=== PATIENT | male | born 1970 | race Hispanic/Latino ===

== ENCOUNTER 2016-05-27 21:26 | Inpatient (IN) | payer OTHER ==
[2016-05-27] MEDS ORDERED: DiphenhydrAMINE 50 mg/ml Inj IM STA (22:20)
[2016-05-27 22:45] LABS: BASO % 0.7 % (0.0-2.0); EOS # 0.2 K/uL (0.0-0.7); EOS % 3.3 % (0.0-4.0); HEMATOCRIT 42.6 % (35.0-51.0); LYMPH # 2.7 K/uL (1.0-4.3); LYMPH % 42.4 % (20.0-40.0); MEAN CELL VOLUME 94.8 fL (80.0-94.0); MEAN CORPUSCULAR HEMOGLOBIN 31.7 pg (27.0-31.0); MEAN CORPUSCULAR HGB CONC 33.4 g/dL (33.0-37.0); MEAN PLATELET VOLUME 7.7 fL (7.2-11.7); MONO # 0.3 K/uL (0.0-0.8); MONO % 4.3 % (0.0-10.0); RED CELL DISTRIBUTION WIDTH 13.2 % (11.5-14.5); WHITE BLOOD COUNT 6.4 K/uL (4.8-10.8)
[2016-05-27] MEDS ORDERED: DiphenhydrAMINE 50 mg/ml Inj ONE (22:46)
[2016-05-27 22:48] LABS: RBC URINE < 1 /hpf (0-3); URINE BILIRUBIN NEGATIVE (NEGATIVE); URINE BLOOD NEGATIVE (NEGATIVE); URINE COLOR Yellow (YELLOW); URINE GLUCOSE (UA) NORMAL (Normal); URINE KETONE NEGATIVE (NEGATIVE); URINE LEUKOCYTE ESTERASE NEG Leu/uL (Negative); URINE PROTEIN NEGATIVE (NEGATIVE); URINE UROBILINOGEN NORMAL mg/dL (0.2-1.0); WBC URINE < 1 /hpf (0-5)
[2016-05-27 22:55] LABS: CHLORIDE 99 mmol/L (98-107); POTASSIUM 4.3 mmol/L (3.6-5.2); SODIUM 138 mmol/L (132-148)
[2016-05-27 22:57] LABS: GFR AFRICAN-AMERICAN > 60
[2016-05-27 22:58] LABS: ALB/GLOB RATIO 1.7 (1.0-2.1); ALKALINE PHOSPHATASE 81 U/L (38-126); ALT/SGPT 36 U/L (21-72); AST/SGOT 46 U/L (17-59); BILIRUBIN,TOTAL 0.5 mg/dL (0.2-1.3); BLOOD UREA NITROGEN 15 mg/dL (9-20); CALCIUM 8.5 mg/dl (8.6-10.4); CARBON DIOXIDE 21 mmol/L (22-30); GLUCOSE,RANDOM 86 mg/dL (75-110); TOTAL PROTEIN 7.5 g/dL (6.3-8.3)
[2016-05-27 22:59] LABS: ALCOHOL SERUM 252 mg/dl (0-10)
--- NOTE | 2016-05-27 23:01 | C.PDOC ---
History Of Present Illness Patient is a 45 year old male who presents to the ER intoxicated with suicidal ideation. Patient has a history of chronic intoxication, psychiatric illness and admission for psychiatric illness. Time Seen by Provider: 05/27/16 22:17 Chief Complaint (Nursing): Psychiatric Evaluation History Per: Patient History/Exam Limitations: no limitations Onset/Duration Of Symptoms: Hrs Current Symptoms Are (Timing): Still Present Suicide/Self Injury Attempted (Context): None Modifying Factor(s): Alcohol Associated Symptoms: Suicidal Thoughts, Suicidal Plan Past Medical History Reviewed: Historical Data, Nursing Documentation, Vital Signs Vital Signs: Last Vital Signs Temp 97.3 F L 05/27/16 23:59 Pulse 74 05/27/16 23:59 Resp 16 05/27/16 23:59 BP 97/60 L 05/27/16 23:59 Pulse Ox 98 05/27/16 23:59 - Medical History PMH: Bipolar Disorder, Depression, Schizophrenia - [facility] Procedures ALCOHOL DETOXIFICATION (08/25/12) DETOXIFICATION SERVICES FOR SUBSTANCE ABUSE TREATMENT (04/24/16) GROUP TERMINAL MAKE UP OPERATOR FOR SUBSTANCE ABUSE TREATMENT, PSYCHOEDUCATION (02/12/15) INDIV PSYCHOTHERAPY FOR SUBSTANCE ABUSE TREATMENT, SUPPORT (04/24/16) INDIV PSYCHOTHERAPY FOR SUBSTANCE ABUSE, COGNITIV BEHAVIORAL (04/24/16) INDIV PSYCHOTHERAPY FOR SUBSTANCE ABUSE, PSYCHOEDUCATION (04/24/16) INDIVID PSYCHOTHERAP NEC (01/12/13) INDIVIDUAL PSYCHOTHERAPY, COGNITIVE-BEHAVIORAL (04/24/16) INDIVIDUAL PSYCHOTHERAPY, SUPPORTIVE (04/24/16) OTHER GROUP THERAPY (01/12/13) Family History: States: Unknown Family Hx - Social History Hx Tobacco Use: Yes Hx Alcohol Use: Yes (vodka) Hx Substance Use: Yes (heroin, xanax) - Immunization History Hx Tetanus Toxoid Vaccination: Yes Hx Influenza Vaccination: No Hx Pneumococcal Vaccination: No Review Of Systems Constitutional: Negative for: Fever, Chills Cardiovascular: Negative for: Palpitations Respiratory: Negative for: Shortness of Breath Gastrointestinal: Negative for: Nausea, Vomiting Psych: Positive for: Suicidal ideation Physical Exam - Physical Exam Appears: Non-toxic, Other (Ready eye, ETOH on breath) Skin: Normal Color, Warm, Dry Head: Atraumatic, Normacephalic Oral Mucosa: Moist Chest: Symmetrical Cardiovascular: Rhythm Regular Respiratory: Normal Breath Sounds, No Rales, No Rhonchi, No Wheezing Gastrointestinal/Abdominal: Other (Obese) Neurological/Psych: Oriented x3 Additional Physical Exam Comments: Patient speaking nonsense, will not follow instructions. ED Course And Treatment - Laboratory Results Result Diagrams: 05/27/16 22:42 05/27/16 22:42 Lab Interpretation: Abnormal (ETOH 252 H, tox + THC, opiates) O2 Sat by Pulse Oximetry: 97 (Room air) Pulse Ox Interpretation: Normal Progress Note: Drug screen ordered. Ativan IM, Benadryl IM, and Geodon cap IM administered. Reevaluation Time: 00:41 Reassessment Condition: Improved (resting comfortably, restraints ultimately not necessary for safety. Pending sobriety for Crisis eval) Disposition - Disposition Disposition Time: 01:00 Condition: GOOD - Clinical Impression Clinical Impression: Alcohol intoxication, Polysubstance abuse - Scribe Statement The provider has reviewed the documentation as recorded by the Scribe Mandeep Ly All medical record entries made by the Scribe were at my direction and personally dictated by me. I have reviewed the chart and agree that the record accurately reflects my personal performance of the history, physical exam, medical decision making, and the department course for this patient. I have also personally directed, reviewed, and agree with the discharge instructions and disposition. Physician Patient Turnover Patient Signed Over To: Jo Persaud Handoff Comments: dispo per Crisis eval
[2016-05-28 12:30] VITALS: O2SAT 98
[2016-05-28] MEDS ORDERED: Aluminum Hydroxide/Magnesium Hydroxide Susp (30 mL) PO PRN (14:03)
[2016-05-28] MEDS: Multiple Vitamins Tab PO SCH (15:28)
--- NOTE | 2016-05-28 15:53 | PCM.PSYCH ---
Initial Psychiatric Evaluation - Initial Psychiatric Evaluation Type of Admission: Voluntary Legal Status: Capacity History of Present Illness and Precipitating Events: Pt is a 45 yo M admitted for depression with suicidal ideation, alcohol, benzo, and heroin withdrawal. 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 States he has a history of depression for the past 4-5 years, this current episode of depressed mood began one week ago. Associated symptoms include anhedonia, decreased energy, poor sleep, poor appetite, difficulty concentrating. Pt reports suicidal ideation with plan to jump onto subway tracks or off a building. Reports history of suicidal ideation, but no previous suicide attempts. Denies homicidal ideation, visual or auditory hallucinations. Pt also complaining of alcohol and heroin withdrawal. Began drinking heavily 5 years ago. Drinks 2 pints of rum and vodka , along with twenty 24 oz. cans of beer daily. Pts last drink was 9 PM last night. Pt reports a 20 year history of heroin use. Currently uses 15 bags per day, shoots and snorts. Last use was 5 bags at 10PM last night. Pt also admits to using 2mg of Xanax daily for the past month. Last use was 10PM last night. Pt denies all other drug use. History of 5-6 detox and 1 rehab. Longest period of sobriety was for 2 years following rehab. Pt Complains of withdrawal symptoms including anxiety, restlessness, insomnia, abdominal pain, nausea, vomiting, diarrhea, yawning, rhinorrhea. Denies fever, palpitations, tremor, and seizure. Pts discharge plan is to attend senior living inpatient rehab. Psych Hx: Major depressive disorder, alcohol use disorder, opioid use disorder. Multiple inpatient psych admissions in the past, last admission was at [facility] on 04/24/16. Family Psych Hx: denies PMHx: Denies Medications: Neurontin, Zoloft, trazodone Current Medications: Active Medications Generic Name Dose Route Start Last Admin Trade Name Freq PRN Reason Stop Dose Admin Al Hydrox/Mg Hydrox/Simethicone 30 ml 05/28/16 14:03 Maalox 30 Ml PO TID PRN Indigestion / Heartburn Chlordiazepoxide 25 mg 05/28/16 14:02 Librium PO Q4H PRN Alcohol Withdrawal Clonidine HCl 0.1 mg 05/28/16 14:03 Catapres PO Q8 PRN COWS Score More or Equal to 5 Diphenhydramine HCl 50 mg 05/28/16 14:00 Benadryl PO Q6 PRN Extra Pyramidal Symptoms Folic Acid 1 mg 05/28/16 14:15 05/28/16 15:29 Folic Acid PO 1 mg DAILY BURTON Administration Loperamide HCl 2 mg 05/28/16 14:00 Imodium PO Q8 PRN Diarrhea Multivitamins 1 tab 05/28/16 14:15 05/28/16 15:28 Hexavitamin PO 1 tab DAILY B[facility]TON Administration Nicotine 1 patch 05/28/16 14:15 05/28/16 15:23 Nicoderm Cq TD Not Given DAILY BURTON Ondansetron HCl 4 mg 05/28/16 14:00 Zofran Tab PO Q8H PRN Nausea/Vomiting Pseudoephedrine HCl 60 mg 05/28/16 14:03 Sudafed Tab PO QID PRN Nasal/Sinus Congestion Thiamine HCl 100 mg 05/28/16 14:15 05/28/16 15:29 Vitamin B1 Tab PO 100 mg DAILY BURTON Administration Trazodone HCl 50 mg 05/28/16 22:00 Desyrel PO HS BURTON Past Psychiatric History - Past Psychiatric History Previous Treatment History: Inpatient Pertinent Medical Hx (Current Medical&Sleep Prob, Allergies): Allergies Allergy/AdvReac Type Severity Reaction Status Date / Time FISH Allergy Severe RASH Verified 04/23/16 19:25 EGG Allergy Verified 04/23/16 19:25 Penicillins Allergy Verified 04/23/16 19:25 Gabapentin [Neurontin] 400 mg PO TID #90 cap 04/30/16 QUEtiapine [Seroquel] 100 mg PO HS #30 tab 04/30/16 Sertraline [Zoloft] 100 mg PO DAILY #30 tab 04/30/16 traZODone [Desyrel] 100 mg PO HS PRN #30 tab 04/30/16 Review of Systems - Review of Systems All systems: reviewed and no additional remarkable complaints except - Psychiatric Psychiatric: Anxiety, Irritability, Mood Swings, Suicidal Ideation Mental Status Examination - Personal Presentation Personal Presentation: Looks stated age - Affect Affect: Constricted, Depressed - Motor Activity Motor Activity: Calm - Reliability in Providing Information Reliability in Providing Information: Good - Speech Speech: Organized - Mood Mood: Depressed, Anxious - Formal Thought Process Formal Thought Process: No Impairment - Obsessions/Compulsions Obsessions: No Compulsions: No - Cognitive Functions Orientation: Person, Place, Situation, Time Sensorium: Alert Attention/Concentration: Easily distracted Abstract Thinking: [place] Estimate of Intelligence: Below average Judgement: Imparied, as evidence by: Poor judgement, Imparied, as evidence by: Lack of insight into illness - Risk Risk: Suicidal, Withdrawal, Diminished functioning - Strength & Assets Inventory Strength & Assets Inventory: Cooperative - Limitations Limitations: Living alone DSM 5 DX - DSM 5 DSM 5 Diagnosis: Major depressive disorder recurrent severe without psychotic features Alcohol use disorder severe Alcohol withdrawal Opiate use disorder severe Opiate withdrawal - Recommended/Plan of Treatment Treatment Recommendations and Plan of Treatment: Major depressive disorder recurrent severe without psychotic features CBT Psychoeducation Supportive therapy, group therapy, individual therapy Zoloft 25 mg by mouth daily Trazodone 50 mg by mouth daily at bedtime Alcohol use disorder severe CBT Psychoeducation use [place] for abstinence Alcohol withdrawal CBT Psychoeducation Librium taper Opiate use disorder severe CBT Psychoeducation use [place] for abstinence Opiate withdrawal CBT Psychoeducation Methadone taper - Smoking Cessation Smoking Cessation Initiated: No
[2016-05-29] MEDS: Multiple Vitamins Tab PO SCH (09:52)
--- NOTE | 2016-05-29 15:30 | PCM.PYCHPN ---
Psychiatric Progress Note - Psychiatric Progress Note Patient seen today, length of contact: 15 min Patient Chief Complaint: I'm feeling depressed Problems Identified/Issues Discussed: Patient seen and evaluated, chart reviewed and discussed with the nurse. Patient reports irritability, and feelings of hopelessness and helplessness. He remained isolated and withdrawn. He still reports withdrawal symptoms including shakes, anxiety, headaches, nausea and sweating. However he remained calm and cooperative. He is taking medication and denied any side effects. Supportive therapy and psychoeducation were given Medication Change: Yes (Methadone taper, Librium taper) Medical Record Reviewed: Yes Mental Status Examination - Cognitive Function Orientation: Person, Place, Situation, Time Memory: Intact Attention: WNL Concentration: Poor Association: WNL Fund of Knowledge: Poor - Mood Mood: Depressed, Anxious - Affect Affect: Constricted, Depressed - Speech Speech: Soft - Formal Thought Process Formal Thought Process: No Impairment - Suicidal Ideation Suicidal Ideation: No - Homicidal Ideation Homicidal Ideation: No Goal/Treatment Plan - Goal/Treatment Plan Need for Continued Stay: Discharge may exacerbated symptoms, Severe functional impairment Progress Toward Problem(s) and Goals/Treatment Plan: Major depressive disorder recurrent severe without psychotic features CBT Psychoeducation Supportive therapy, group therapy, individual therapy Zoloft 25 mg by mouth daily Trazodone 50 mg by mouth daily at bedtime Alcohol use disorder severe CBT Psychoeducation use [place] for abstinence Alcohol withdrawal CBT Psychoeducation Librium taper Opiate use disorder severe CBT Psychoeducation use [place] for abstinence Opiate withdrawal CBT Psychoeducation Methadone taper - Smoking Cessation Smoking Cessation Initiated: No
--- NOTE | 2016-05-30 10:00 | PCM.PYCHPN ---
Psychiatric Progress Note - Psychiatric Progress Note Patient seen today, length of contact: 15 min Patient Chief Complaint: I'm feeling depressed Problems Identified/Issues Discussed: Patient seen and evaluated, chart reviewed and discussed with the nurse. As per the staff patient remained calm and cooperative and has started attending groups and meetings. Patient reports a bit improvement in his depressed mood but still reports depressed mood and sometimes feelings of hopelessness and helplessness. He remained isolated and withdrawn. He still reports withdrawal symptoms including anxiety, cramps and sweating. He is taking medication and denied any side effects. Supportive therapy and psychoeducation were given Medication Change: Yes (Methadone taper, Librium taper, increase zoloft, start remeron) Medical Record Reviewed: Yes Mental Status Examination - Cognitive Function Orientation: Person, Place, Situation, Time Memory: Intact Attention: WNL Concentration: Poor Association: WNL Fund of Knowledge: Poor - Mood Mood: Depressed, Anxious - Affect Affect: Constricted, Depressed - Speech Speech: Soft - Formal Thought Process Formal Thought Process: No Impairment - Suicidal Ideation Suicidal Ideation: No - Homicidal Ideation Homicidal Ideation: No Goal/Treatment Plan - Goal/Treatment Plan Need for Continued Stay: Discharge may exacerbated symptoms, Severe functional impairment Progress Toward Problem(s) and Goals/Treatment Plan: Major depressive disorder recurrent severe without psychotic features CBT Psychoeducation Supportive therapy, group therapy, individual therapy Zoloft 100 mg by mouth daily Trazodone 50 mg by mouth daily at bedtime Strat Remeron 15 mg PO Q HS Increase Neurontin to 300 mg PO TID Alcohol use disorder severe CBT Psychoeducation use [place] for abstinence Alcohol withdrawal CBT Psychoeducation Librium taper Opiate use disorder severe CBT Psychoeducation use [place] for abstinence Opiate withdrawal CBT Psychoeducation Methadone taper - Smoking Cessation Smoking Cessation Initiated: No
[2016-05-30] MEDS: Multiple Vitamins Tab PO SCH (10:15)
[2016-05-31] MEDS: Multiple Vitamins Tab PO SCH (09:29)
--- NOTE | 2016-05-31 13:20 | PCM.PYCHPN ---
Psychiatric Progress Note - Psychiatric Progress Note Patient seen today, length of contact: 15 min Patient Chief Complaint: "I need more methadone" Problems Identified/Issues Discussed: The pt is seen, chart reviewed, case discussed with staff. The pt is compliant with medications and reports no side-effects. Symptoms are improving but needs more time to stabilize. However, he also claims he is withdrawing (maybe minimal sxs observed) He will get one LAST dose of methadone tomorrow After care discussed, support and psychoeducation given. [place] and CBT used briefly. Medication Change: Yes (Methadone taper, Librium taper) Medical Record Reviewed: Yes Mental Status Examination - Cognitive Function Orientation: Person, Place, Situation, Time Memory: Intact Attention: WNL Concentration: Poor Association: WNL Fund of Knowledge: Poor - Mood Mood: Depressed, Anxious - Affect Affect: Constricted - Speech Speech: Soft - Formal Thought Process Formal Thought Process: No Impairment - Suicidal Ideation Suicidal Ideation: No - Homicidal Ideation Homicidal Ideation: No Goal/Treatment Plan - Goal/Treatment Plan Need for Continued Stay: Discharge may exacerbated symptoms, Severe functional impairment Progress Toward Problem(s) and Goals/Treatment Plan: Continue medications Support and psychoeducation daily Attend groups and activities daily After care planning
[2016-06-01] MEDS: Multiple Vitamins Tab PO SCH (09:10)
--- NOTE | 2016-06-01 17:42 | PCM.PYCHPN ---
Psychiatric Progress Note - Psychiatric Progress Note Patient seen today, length of contact: 16 min Patient Chief Complaint: "I am still withdrawing" Problems Identified/Issues Discussed: The pt is seen, chart reviewed, case discussed with staff. The pt is compliant with medications and reports no side-effects. He thinks he is still withdrawing (he is not) and that he is still depressed. Detox completed After care discussed, support and psychoeducation given. He will apply to [employer] in [place] used Medication Change: Yes (detox ended, increase gabapentin for anxiety) Medical Record Reviewed: Yes Mental Status Examination - Cognitive Function Orientation: Person, Place, Situation, Time Memory: Intact Attention: WNL Concentration: Poor Association: WNL Fund of Knowledge: Poor - Mood Mood: Depressed, Anxious - Affect Affect: Constricted - Speech Speech: Soft - Formal Thought Process Formal Thought Process: No Impairment - Suicidal Ideation Suicidal Ideation: No - Homicidal Ideation Homicidal Ideation: No Goal/Treatment Plan - Goal/Treatment Plan Need for Continued Stay: Discharge may exacerbated symptoms, Severe functional impairment Progress Toward Problem(s) and Goals/Treatment Plan: Continue medications, debbie increased due to anxiety Support and psychoeducation daily Attend groups and activities daily After care planning: [employer] application in AM Estimated Date of D/C: 06/03/16
[2016-06-02] MEDS: Multiple Vitamins Tab PO SCH (09:43)
--- NOTE | 2016-06-02 13:27 | PCM.PYCHPN ---
Psychiatric Progress Note - Psychiatric Progress Note Patient seen today, length of contact: 16 min Patient Chief Complaint: I'm feeling better Problems Identified/Issues Discussed: Patient seen and evaluated, chart reviewed and discussed with the nurse. Today patient reports improvement in his mood and improvement in his withdrawal symptoms. This reports of poor sleep and anxiety but denies any feelings of hopelessness and helplessness. He has any suicidal ideation or homicidal ideation. Supportive therapy and psychoeducation were given Medication Change: Yes (detox ended, increase gabapentin for anxiety) Medical Record Reviewed: Yes Mental Status Examination - Cognitive Function Orientation: Person, Place, Situation, Time Memory: Intact Attention: WNL Concentration: WNL Association: WN Fund of Knowledge: WNL - Mood Mood: Depressed, Anxious - Affect Affect: Constricted - Speech Speech: Soft - Formal Thought Process Formal Thought Process: No Impairment - Suicidal Ideation Suicidal Ideation: No - Homicidal Ideation Homicidal Ideation: No Goal/Treatment Plan - Goal/Treatment Plan Need for Continued Stay: Discharge may exacerbated symptoms, Severe functional impairment Progress Toward Problem(s) and Goals/Treatment Plan: Major depressive disorder recurrent severe without psychotic features CBT Psychoeducation Supportive therapy, group therapy, individual therapy Zoloft 100 mg by mouth daily Trazodone 50 mg by mouth daily at bedtime Strat Remeron 15 mg PO Q HS Increase Neurontin to 300 mg PO TID Alcohol use disorder severe CBT Psychoeducation use [place] for abstinence Alcohol withdrawal CBT Psychoeducation Librium taper Opiate use disorder severe CBT Psychoeducation use [place] for abstinence Opiate withdrawal CBT Psychoeducation Methadone taper Estimated Date of D/C: 06/03/16 - Smoking Cessation Smoking Cessation Initiated: Yes
[2016-06-03 06:59] VITALS: BP 119/76; PULSE 74; RESP 19; TEMP 97.6
--- NOTE | 2016-06-03 09:46 | PCM.PYCHDC ---
Mental Status Examination - Mental Status Examination Orientation: Person, Place, Situation, Time Memory: Intact Mood: Neutral Affect: Constricted Speech: Soft Attention: WNL Concentration: WNL Association: WNL Fund of Knowledge: WNL Formal Thought Process: No Impairment Description of patient's judgement and insight: good, fair Psychotic Thoughts and Behaviors: denies any AVH Suicidal Ideation: No Current Homicidal Ideation?: No Discharge Summary - Discharge Note Reason for Hospitalization: Pt is a 45 yo M admitted for depression with suicidal ideation, alcohol, benzo, and heroin withdrawal. 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 States he has a history of depression for the past 4-5 years, this current episode of depressed mood began one week ago. Associated symptoms include anhedonia, decreased energy, poor sleep, poor appetite, difficulty concentrating. Pt reports suicidal ideation with plan to jump onto subway tracks or off a building. Reports history of suicidal ideation, but no previous suicide attempts. Denies homicidal ideation, visual or auditory hallucinations. Pt also complaining of alcohol and heroin withdrawal. Began drinking heavily 5 years ago. Drinks 2 pints of rum and vodka , along with twenty 24 oz. cans of beer daily. Pts last drink was 9 PM last night. Pt reports a 20 year history of heroin use. Currently uses 15 bags per day, shoots and snorts. Last use was 5 bags at 10PM last night. Pt also admits to using 2mg of Xanax daily for the past month. Last use was 10PM last night. Pt denies all other drug use. History of 5-6 detox and 1 rehab. Longest period of sobriety was for 2 years following rehab. Pt Complains of withdrawal symptoms including anxiety, restlessness, insomnia, abdominal pain, nausea, vomiting, diarrhea, yawning, rhinorrhea. Denies fever, palpitations, tremor, and seizure. Pts discharge plan is to attend [facility] inpatient rehab. Consultations:: List each consultation separately and include: 1. Reason for request. 2. Findings. 3. Follow-up Summary of Hospital Course include:: 1. Description of specific treatment plan utilized for patients during their course of treatmen. 2. Summarize the time- course for resolution of acute symptoms and/or regressed behaviors. 3. Describe issues identified and worked on during hospitalization. 4. Describe medication utilized. 5. Describe medical problems identified and treated. 6. Reassessment of suicide risk Summary of Hospital Course: During the course of his stay, patient (pt) started progressively improving and he no longer remained irritable, depressed, and suicidal. His mood was improved and he started attending groups and meetings and started socializing. Patient denied any feelings of hopelessness, helplessness, and worthlessness, denied any problem with the sleep or appetite, denied suicidal ideation or homicidal ideation. Pt denied any auditory or visual hallucinations. Some changes were made in his current medications and patient was discharged on following medications. He tolerated these medications very well and denied any side effects. - Final Diagnosis (DSM 5) Condition upon Discharge: STABLE DSM 5: Major depressive disorder recurrent severe without psychotic features Alcohol use disorder severe Alcohol withdrawal Opiate use disorder severe Opiate withdrawal Disposition: HOME/ ROUTINE Follow-up Treatment Plan: Education: Pt was educated and counseled about the risks and benefits of taking and not taking medications. Pt was educated and counseled about the risks of drinking and abusing drugs. Pt was educated and counseled to go to the ER or call 911 if pt develop suicidal ideation or homicidal ideation, worsening of symptoms or severe side effects of the meds. Prescriptions/Medication Reconciliation: traZODone [Desyrel] 50 mg PO HS PRN #30 tab PRN Reason: Insomnia Gabapentin [Neurontin] 400 mg PO TID #90 cap Mirtazapine [Remeron] 30 mg PO HS #30 tab Sertraline [Zoloft] 100 mg PO DAILY #30 tab - Smoking Cessation Smoking Cessation Medication prescribed: No - Antipsychotic Medications Pt discharged on 2 or more routine antipsychotic medications: No
[2016-06-03] MEDS: Multiple Vitamins Tab PO SCH (09:55)
== END 2016-06-03 10:22 | disposition home or self-care (01) | DRG 744 ==
LOC: C.ER 21:26 → C.9OBSV 05-28 01:10 → OBSVTOIN 05-28 10:43 → C.5E 05-28 10:43
PROVIDERS: ADMIT Emergency Medicine; ATTEND Psychiatry & Neurology Psychiatry
PROC: HZ2ZZZZ Detoxification Services for Substance Abuse Treatment (ICD-10-PCS; principal; 2016-05-28)
PROC: HZ52ZZZ Individual Psychotherapy for Substance Abuse Treatment, Cognitive-Behavioral (ICD-10-PCS; 2016-05-28)
PROC: GZHZZZZ Group Psychotherapy (ICD-10-PCS; 2016-05-28)
PROC: HZ81ZZZ Medication Management for Substance Abuse Treatment, Methadone Maintenance (ICD-10-PCS; 2016-05-28)
PROC: HZ56ZZZ Individual Psychotherapy for Substance Abuse Treatment, Psychoeducation (ICD-10-PCS; 2016-05-28)
PROC: HZ83ZZZ Medication Management for Substance Abuse Treatment, Antabuse (ICD-10-PCS; 2016-05-28)
PROC: GZ58ZZZ Individual Psychotherapy, Cognitive-Behavioral (ICD-10-PCS; 2016-05-28)
PROC: GZ56ZZZ Individual Psychotherapy, Supportive (ICD-10-PCS; 2016-05-28)
DX: F10.239 Alcohol dependence with withdrawal, unspecified (principal); F33.2 Major depressive disorder, recurrent severe without psychotic features; F19.20 Other psychoactive substance dependence, uncomplicated; R45.851 Suicidal ideations; F20.9 Schizophrenia, unspecified; R45.850 Homicidal ideations; F11.23 Opioid dependence with withdrawal; F31.9 Bipolar disorder, unspecified; F41.9 Anxiety disorder, unspecified; G47.00 Insomnia, unspecified; Z79.899 Other long term (current) drug therapy; Z87.891 Personal history of nicotine dependence

== ENCOUNTER 2016-07-15 22:50 | Emergency (ER) | payer MEDICAID, OTHER ==
[2016-07-15 23:22] VITALS: RESP 20
--- NOTE | 2016-07-15 23:45 | C.PDOC ---
History Of Present Illness A 45 y/o male presents to the ER c/o depression and suicidal ideation today. Pt notes that he wants to jump of a bridge. Pt is ETOH intoxicated but denies any physical complaints. Time Seen by Provider: 07/15/16 23:44 Chief Complaint (Nursing): Psychiatric Evaluation History Per: Patient History/Exam Limitations: intoxication Onset/Duration Of Symptoms: Hrs Current Symptoms Are (Timing): Still Present Suicide/Self Injury Attempted (Context): None Modifying Factor(s): Alcohol Severity: Mild Associated Symptoms: Depression, Suicidal Thoughts (Wants to jump off a plane). denies: Suicidal Plan Involuntary Hold By: None Recent travel outside of the [place]: No Additional History Per: Patient Past Medical History Reviewed: Historical Data, Nursing Documentation, Vital Signs Vital Signs: Last Vital Signs Temp 98 F 07/15/16 23:15 Pulse 88 07/16/16 04:00 Resp 20 07/16/16 04:00 BP 132/70 07/16/16 04:00 Pulse Ox 98 07/16/16 04:00 - Medical History PMH: Bipolar Disorder, Depression, HIV (Not proved by lab work.), Schizophrenia Denies: Diabetes, Hepatitis, HTN, Chronic Kidney Disease, Seizures, Sexually Transmitted Disease - [facility] Procedures ALCOHOL DETOXIFICATION (08/25/12) DETOXIFICATION SERVICES FOR SUBSTANCE ABUSE TREATMENT (05/28/16) GROUP INSPECTOR REPAIRER SANDSTONE FOR SUBSTANCE ABUSE TREATMENT, PSYCHOEDUCATION (02/12/15) GROUP PSYCHOTHERAPY (06/23/16) INDIV PSYCHOTHERAPY FOR SUBSTANCE ABUSE TREATMENT, SUPPORT (04/24/16) INDIV PSYCHOTHERAPY FOR SUBSTANCE ABUSE, COGNITIV BEHAVIORAL (05/28/16) INDIV PSYCHOTHERAPY FOR SUBSTANCE ABUSE, PSYCHOEDUCATION (05/28/16) INDIVID PSYCHOTHERAP NEC (01/12/13) INDIVIDUAL PSYCHOTHERAPY, COGNITIVE-BEHAVIORAL (06/23/16) INDIVIDUAL PSYCHOTHERAPY, SUPPORTIVE (05/28/16) MEDS MGMT FOR SUBSTANCE ABUSE TREATMENT, ANTABUSE (05/28/16) MEDS MGMT FOR SUBSTANCE ABUSE TREATMENT, METHADONE MAINT (05/28/16) OTHER GROUP THERAPY (01/12/13) Family History: States: Unknown Family Hx - Social History Hx Tobacco Use: Yes Hx Alcohol Use: Yes Hx Substance Use: Yes (heroin,marijuana,xanax) - Immunization History Hx Tetanus Toxoid Vaccination: Yes Hx Influenza Vaccination: No Hx Pneumococcal Vaccination: No Review Of Systems Constitutional: Positive for: Other (ETOH intoxication). Negative for: Fever, Chills Gastrointestinal: Negative for: Nausea, Vomiting, Abdominal Pain, Diarrhea Psych: Positive for: Depression, Suicidal ideation Physical Exam - Physical Exam Appears: Non-toxic, No Acute Distress, Other (ETOH intoxication, (+) AOB) Skin: Warm, Dry Head: Normacephalic Eye(s): bilateral: Normal Inspection Oral Mucosa: Moist Neck: Trachea Midline, Supple Chest: Symmetrical Cardiovascular: Rhythm Regular Respiratory: No Rales, No Rhonchi, No Wheezing Gastrointestinal/Abdominal: Soft, No Tenderness Neurological/Psych: Oriented x3 (Awake and alert), Normal Speech Gait: Steady ED Course And Treatment - Laboratory Results Result Diagrams: 07/16/16 00:11 07/16/16 00:11 O2 Sat by Pulse Oximetry: 98 (RA) Pulse Ox Interpretation: Normal Progress Note: Pt was cleared for discharge by dr Partida Reevaluation Time: 05:18 Reassessment Condition: Improved Disposition Counseled Patient/Family Regarding: Studies Performed, Diagnosis, Need For Followup - Disposition Referrals: [facility] at [facility] [Outside] Disposition: HOME/ ROUTINE Disposition Time: 23:44 Condition: FAIR Instructions: Depression (DC), Polysubstance Abuse (ED), Alcohol Intoxication ( DC) - Clinical Impression Clinical Impression: Drug dependence, Alcohol intoxication - Scribe Statement The provider has reviewed the documentation as recorded by the Scribe Aamir [email or web address] All medical record entries made by the Scribe were at my direction and personally dictated by me. I have reviewed the chart and agree that the record accurately reflects my personal performance of the history, physical exam, medical decision making, and the department course for this patient. I have also personally directed, reviewed, and agree with the discharge instructions and disposition.
[2016-07-16 00:16] LABS: BASO # 0.1 K/uL (0.0-0.2); BASO % 1.4 % (0.0-2.0); EOS # 0.2 K/uL (0.0-0.7); EOS % 2.5 % (0.0-4.0); HEMATOCRIT 40.7 % (35.0-51.0); LYMPH # 2.2 K/uL (1.0-4.3); LYMPH % 34.9 % (20.0-40.0); MEAN CELL VOLUME 94.4 fL (80.0-94.0); MEAN CORPUSCULAR HEMOGLOBIN 32.4 pg (27.0-31.0); MEAN CORPUSCULAR HGB CONC 34.3 g/dL (33.0-37.0); MEAN PLATELET VOLUME 6.9 fL (7.2-11.7); MONO # 0.3 K/uL (0.0-0.8); MONO % 4.5 % (0.0-10.0); NRBC % 0.1 % (0.0-2.0); WHITE BLOOD COUNT 6.3 K/uL (4.8-10.8)
[2016-07-16 00:23] LABS: CHLORIDE 102 mmol/L (98-107); POTASSIUM 4.9 mmol/L (3.6-5.2); SODIUM 139 mmol/L (132-148)
[2016-07-16 00:25] LABS: GFR AFRICAN-AMERICAN > 60
[2016-07-16 00:26] LABS: ALB/GLOB RATIO 1.5 (1.0-2.1); ALKALINE PHOSPHATASE 84 U/L (38-126); ALT/SGPT 23 U/L (21-72); AST/SGOT 32 U/L (17-59); BILIRUBIN,TOTAL 0.7 mg/dL (0.2-1.3); BLOOD UREA NITROGEN 8 mg/dL (9-20); CALCIUM 8.5 mg/dl (8.6-10.4); CARBON DIOXIDE 25 mmol/L (22-30); GLUCOSE,RANDOM 89 mg/dL (75-110); TOTAL PROTEIN 7.1 g/dL (6.3-8.3)
[2016-07-16 00:27] LABS: ALCOHOL SERUM 243 mg/dl (0-10)
[2016-07-16 00:40] LABS: URINE BILIRUBIN NEGATIVE (NEGATIVE); URINE BLOOD NEGATIVE (NEGATIVE); URINE COLOR Colorless (YELLOW); URINE GLUCOSE (UA) NORMAL (Normal); URINE KETONE NEGATIVE (NEGATIVE); URINE LEUKOCYTE ESTERASE NEG Leu/uL (Negative); URINE PROTEIN NEGATIVE (NEGATIVE); URINE UROBILINOGEN NORMAL mg/dL (0.2-1.0)
[2016-07-16 05:30] VITALS: BP 138/70; PULSE 89; TEMP 97.3; O2SAT 99
== END 2016-07-16 05:30 | disposition home or self-care (01) ==
LOC: C.ER 22:50
DX: F10.129 Alcohol abuse with intoxication, unspecified (principal); Y90.8 Blood alcohol level of 240 mg/100 ml or more; F19.20 Other psychoactive substance dependence, uncomplicated

== ENCOUNTER 2016-08-06 00:49 | Observation (INO) | payer MEDICAID, OTHER ==
[2016-08-06 00:49] VITALS: BMI 28.2
[2016-08-06] MEDS ORDERED: Sodium Chloride 0.9% 1,000 ML IV ONE (02:10)
--- NOTE | 2016-08-06 02:11 | C.PDOC ---
History Of Present Illness Patient was dropped off to the ER by an unknown person; patient admits to heroin use today. Denies any physical complaints at this time. Time Seen by Provider: 08/06/16 02:10 Chief Complaint (Nursing): Substance Abuse History Per: Patient History/Exam Limitations: no limitations Onset/Duration Of Symptoms: Hrs Current Symptoms Are (Timing): Still Present Suicide/Self Injury Attempted (Context): None Modifying Factor(s): Narcotics Severity: None Pain Scale Rating Of: 0 Associated Symptoms: denies: Depression, Suicidal Thoughts, Suicidal Plan Involuntary Hold By: None Recent travel outside of the [place]: No Past Medical History Reviewed: Historical Data, Nursing Documentation, Vital Signs Vital Signs: Last Vital Signs Temp 97.7 F 08/06/16 01:31 Pulse 80 08/06/16 04:21 Resp 20 08/06/16 04:21 BP 111/68 08/06/16 04:21 Pulse Ox 99 08/06/16 04:21 - Medical History PMH: Anxiety, Bipolar Disorder, Depression, HIV (Not proved by lab work.), Schizophrenia Surgical History: No Surg Hx - [facility] Procedures ALCOHOL DETOXIFICATION (08/25/12) DETOXIFICATION SERVICES FOR SUBSTANCE ABUSE TREATMENT (05/28/16) GROUP VARIOUS EXCEPTIONALITIES TEACHER FOR SUBSTANCE ABUSE TREATMENT, PSYCHOEDUCATION (02/12/15) GROUP PSYCHOTHERAPY (07/22/16) INDIV VARIOUS EXCEPTIONALITIES TEACHER FOR SUBSTANCE ABUSE, COGNITIVE BEHAVIORAL (07/22/16) INDIV PSYCHOTHERAPY FOR SUBSTANCE ABUSE TREATMENT, SUPPORT (04/24/16) INDIV PSYCHOTHERAPY FOR SUBSTANCE ABUSE, COGNITIV BEHAVIORAL (05/28/16) INDIV PSYCHOTHERAPY FOR SUBSTANCE ABUSE, PSYCHOEDUCATION (05/28/16) INDIVID PSYCHOTHERAP NEC (01/12/13) INDIVIDUAL PSYCHOTHERAPY, COGNITIVE-BEHAVIORAL (06/23/16) INDIVIDUAL PSYCHOTHERAPY, SUPPORTIVE (05/28/16) MEDS MGMT FOR SUBSTANCE ABUSE TREATMENT, ANTABUSE (05/28/16) MEDS MGMT FOR SUBSTANCE ABUSE TREATMENT, METHADONE MAINT (05/28/16) OTHER GROUP THERAPY (01/12/13) Family History: States: No Known Family Hx - Social History Hx Tobacco Use: Yes Hx Alcohol Use: Yes Hx Substance Use: Yes (age 28, heroin, snorting and IV) - Immunization History Hx Tetanus Toxoid Vaccination: Yes Hx Influenza Vaccination: No Hx Pneumococcal Vaccination: No Review Of Systems Constitutional: Negative for: Fever, Chills Gastrointestinal: Negative for: Nausea, Vomiting, Diarrhea Physical Exam - Physical Exam Appears: Non-toxic Skin: Warm, Dry Oral Mucosa: Moist Chest: Symmetrical, No Tenderness Cardiovascular: Rhythm Regular, No Murmur Respiratory: No Rales, No Rhonchi, No Wheezing Gastrointestinal/Abdominal: Soft, No Tenderness Neurological/Psych: Oriented x3 ED Course And Treatment - Laboratory Results Result Diagrams: 08/06/16 02:52 08/06/16 02:52 ECG: Interpreted By Me, Viewed By Me ECG Rhythm: Sinus Rhythm (91), Nonspecific Changes O2 Sat by Pulse Oximetry: 99 (Room air) Pulse Ox Interpretation: Normal - Radiology CXR: Interpreted by Me, Viewed By Me CXR Interpretation: Yes: Infiltrates, Other (large hiatal hernia, mild congestion unchanged from 04/23/16). No: Fracture, Cardiomegaly, Pnemothorax Progress Note: EKG, blood work, CXR and urinalysis ordered. IV fluids administered. Reevaluation Time: 05:30 Reassessment Condition: Improved ED OBSERVATION Discharge: Yes Date of observation admission: 08/06/16 Time of observation admission: 03:12 - Observation admission statement Patient is being placed in observation because:: heroin od - Goals of Observation Goals of observation are:: baseline - Progress Note Progress Note: 08/06/16 03:12 vitals stable, arousable 08/06/16 04:01 vitals stable, arousable Disposition Counseled Patient/Family Regarding: Studies Performed, Diagnosis - Disposition Referrals: [facility] at [facility] [Outside] Disposition: HOME/ ROUTINE Disposition Time: 02:10 Condition: FAIR Instructions: Narcotic Abuse (ED), Alcohol Intoxication (DC) - Clinical Impression Clinical Impression: Drug abuse, Alcohol intoxication - Scribe Statement The provider has reviewed the documentation as recorded by the Scribe Mandeep Ly All medical record entries made by the Scribe were at my direction and personally dictated by me. I have reviewed the chart and agree that the record accurately reflects my personal performance of the history, physical exam, medical decision making, and the department course for this patient. I have also personally directed, reviewed, and agree with the discharge instructions and disposition.
[2016-08-06] MEDS ORDERED: Sodium Chloride 0.9% 1,000 ML ONE (02:52)
[2016-08-06 02:55] LABS: BASO # 0.1 K/uL (0.0-0.2); BASO % 0.6 % (0.0-2.0); EOS # 0.1 K/uL (0.0-0.7); EOS % 0.5 % (0.0-4.0); HEMATOCRIT 43.1 % (35.0-51.0); LYMPH % 18.2 % (20.0-40.0); MEAN CELL VOLUME 96.6 fL (80.0-94.0); MEAN CORPUSCULAR HEMOGLOBIN 31.6 pg (27.0-31.0); MEAN CORPUSCULAR HGB CONC 32.7 g/dL (33.0-37.0); MEAN PLATELET VOLUME 7.6 fL (7.2-11.7); MONO # 0.7 K/uL (0.0-0.8); MONO % 6.1 % (0.0-10.0); RED CELL DISTRIBUTION WIDTH 13.4 % (11.5-14.5); WHITE BLOOD COUNT 10.8 K/uL (4.8-10.8)
[2016-08-06 02:58] LABS: RBC URINE < 1 /hpf (0-3); URINE BILIRUBIN NEGATIVE (NEGATIVE); URINE BLOOD NEGATIVE (NEGATIVE); URINE COLOR Yellow (YELLOW); URINE GLUCOSE (UA) NORMAL (Normal); URINE KETONE TRACE mg/dL (NEGATIVE); URINE LEUKOCYTE ESTERASE NEG Leu/uL (Negative); URINE PROTEIN NEGATIVE (NEGATIVE); URINE UROBILINOGEN NORMAL mg/dL (0.2-1.0); WBC URINE 2 /hpf (0-5)
[2016-08-06 03:07] LABS: CHLORIDE 99 mmol/L (98-107)
[2016-08-06 03:08] LABS: POTASSIUM 3.6 mmol/L (3.6-5.2); SODIUM 136 mmol/L (132-148)
[2016-08-06 03:10] LABS: ALB/GLOB RATIO 1.4 (1.0-2.1); ALKALINE PHOSPHATASE 70 U/L (38-126); ALT/SGPT 28 U/L (21-72); AST/SGOT 23 U/L (17-59); BILIRUBIN,TOTAL 0.4 mg/dL (0.2-1.3); BLOOD UREA NITROGEN 12 mg/dL (9-20); CARBON DIOXIDE 21 mmol/L (22-30); GFR AFRICAN-AMERICAN > 60; GLUCOSE,RANDOM 95 mg/dL (75-110); TOTAL PROTEIN 6.9 g/dL (6.3-8.3)
[2016-08-06 03:11] LABS: ALCOHOL SERUM 157 mg/dl (0-10); CALCIUM 8.3 mg/dl (8.6-10.4)
[2016-08-06] MEDS ORDERED: Naloxone 0.4 mg/ml Inj (Adult) IVP ONE (05:08)
[2016-08-06] MEDS ORDERED: Naloxone 0.4 mg/ml Inj (Adult) ONE (05:26)
[2016-08-06 06:36] VITALS: BP 127/84; PULSE 78; RESP 18; TEMP 97.5; O2SAT 97
--- NOTE | 2016-08-06 09:05 | RAD ---
PROCEDURE: CHEST RADIOGRAPH, 1 VIEW HISTORY: Detox/Psy COMPARISON: 04/23/2016 FINDINGS: LUNGS: Clear. PLEURA: No evidence of pleural effusion or pneumothorax. Air-filled bowel in lower left hemithorax likely related to previously demonstrated hiatal hernia. CARDIOVASCULAR: Normal. OSSEOUS STRUCTURES: No significant abnormalities. VISUALIZED UPPER ABDOMEN: Normal. OTHER FINDINGS: None. IMPRESSION: Hiatal hernia. No acute infiltrate.
--- NOTE | 2016-08-07 19:43 | CARD ---
APPROVED REPORT EKG Measurement Heart [id number] <Conclusion> Normal sinus rhythm Normal ECG
== END 2016-08-06 06:39 | disposition home or self-care (01) ==
LOC: C.ER 00:49 → C.9OBSV 03:11
PROVIDERS: ADMIT Emergency Medicine; ATTEND Emergency Medicine
DX: F11.10 Opioid abuse, uncomplicated (principal); F10.120 Alcohol abuse with intoxication, uncomplicated; F20.9 Schizophrenia, unspecified; F31.9 Bipolar disorder, unspecified; R45.851 Suicidal ideations
CPT/HCPCS: 71010; 80053; 80320; 80324; 80329; 80345; 80346; 80349; 80353; 80358; 80361; 81001; 83992; 85025; 96360; 96374; G0378; J2310; J7040

== ENCOUNTER 2016-08-06 06:41 | Inpatient (IN) | payer MEDICAID, OTHER ==
[2016-08-06 06:41] VITALS: BMI 28.2
--- NOTE | 2016-08-06 09:03 | C.PDOC ---
History Of Present Illness 45 yr old male who was discharged from the ER at 6:30AM this morning, took some tablets of seroquil and spit them out in the garbage can. Patient states he continues to feel depressed. Denies hallucinations, nausea, vomiting, weakness or numbness. Time Seen by Provider: 08/06/16 07:20 Chief Complaint (Nursing): Psychiatric Evaluation History Per: Patient History/Exam Limitations: no limitations Onset/Duration Of Symptoms: Days Current Symptoms Are (Timing): Still Present Past Medical History Reviewed: Historical Data, Nursing Documentation, Vital Signs Vital Signs: Last Vital Signs Temp 97.9 F 08/06/16 14:30 Pulse 109 H 08/06/16 16:03 Resp 20 08/06/16 14:30 BP 107/65 08/06/16 16:03 Pulse Ox 96 08/06/16 10:47 - Medical History PMH: Anxiety, Bipolar Disorder, Depression, HIV (Not proved by lab work.), Schizophrenia - [facility] Procedures ALCOHOL DETOXIFICATION (08/25/12) DETOXIFICATION SERVICES FOR SUBSTANCE ABUSE TREATMENT (05/28/16) GROUP LEAD MASON TENDER FOR SUBSTANCE ABUSE TREATMENT, PSYCHOEDUCATION (02/12/15) GROUP PSYCHOTHERAPY (07/22/16) INDIV LEAD MASON TENDER FOR SUBSTANCE ABUSE, COGNITIVE BEHAVIORAL (07/22/16) INDIV PSYCHOTHERAPY FOR SUBSTANCE ABUSE TREATMENT, SUPPORT (04/24/16) INDIV PSYCHOTHERAPY FOR SUBSTANCE ABUSE, COGNITIV BEHAVIORAL (05/28/16) INDIV PSYCHOTHERAPY FOR SUBSTANCE ABUSE, PSYCHOEDUCATION (05/28/16) INDIVID PSYCHOTHERAP NEC (01/12/13) INDIVIDUAL PSYCHOTHERAPY, BEHAVIORAL (07/30/16) INDIVIDUAL PSYCHOTHERAPY, COGNITIVE-BEHAVIORAL (06/23/16) INDIVIDUAL PSYCHOTHERAPY, SUPPORTIVE (05/28/16) MEDS MGMT FOR SUBSTANCE ABUSE TREATMENT, ANTABUSE (05/28/16) MEDS MGMT FOR SUBSTANCE ABUSE TREATMENT, METHADONE MAINT (05/28/16) OTHER GROUP THERAPY (01/12/13) Family History: States: No Known Family Hx - Social History Hx Tobacco Use: Yes Hx Alcohol Use: Yes Hx Substance Use: Yes (age 28, heroin, snorting and IV) - Immunization History Hx Tetanus Toxoid Vaccination: Yes Hx Influenza Vaccination: No Hx Pneumococcal Vaccination: No Review Of Systems Except As Marked, All Systems Reviewed And Found Negative. Gastrointestinal: Negative for: Nausea, Vomiting Neurological: Negative for: Weakness, Numbness Psych: Positive for: Depression Physical Exam - Physical Exam Appears: Well, No Acute Distress Skin: Warm, Dry, No Rash Head: Atraumatic, Normacephalic Eye(s): bilateral: Normal Inspection, PERRL, EOMI Oral Mucosa: Moist Chest: Symmetrical, No Tenderness Cardiovascular: Rhythm Regular, No Murmur Respiratory: Normal Breath Sounds, No Rales, No Wheezing Gastrointestinal/Abdominal: Normal Exam, Soft, No Tenderness, No Guarding, No Rebound Extremity: Normal ROM, No Swelling Neurological/Psych: Oriented x3, Normal Speech, Normal Motor ED Course And Treatment O2 Sat by Pulse Oximetry: 97 Medical Decision Making Medical Decision Making: PLAN: * EKG Disposition - Disposition Disposition: HOSPITALIZED Disposition Time: 10:35 Condition: STABLE - Clinical Impression Clinical Impression: Bipolar disorder - Scribe Statement The provider has reviewed the documentation as recorded by the Titus Arambula Provider Attestation: All medical record entries made by the Jimmyibenio were at my direction and personally dictated by me. I have reviewed the chart and agree that the record accurately reflects my personal performance of the history, physical exam, medical decision making, and the department course for this patient. I have also personally directed, reviewed, and agree with the discharge instructions and disposition.
--- NOTE | 2016-08-06 12:50 | PCM.PSYCH ---
Initial Psychiatric Evaluation - Initial Psychiatric Evaluation Type of Admission: Voluntary Legal Status: Capacity Chief Complaint (in patient's own words): "I was depressed" History of Present Illness and Precipitating Events: Patient is a 45 year old single male who is homeless but was living with his brother recently. 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 He has no children. he is well-known to the sba underwriter. He was recently admitted to [facility] for 8 days, oh'ed to [facility] in [place] but rejected at the door due to an unknown glitch in the referral process. He then got back to [facility] b/c he was "suicidal" and hospitalized another 6 days and this time referred to [facility]. When he arrived for intake yesterday, he was having acute dystonia in his face due to haldol prn given at [facility]. They sent him to [facility] ER and he is dc'ed from there and the pt got upset again and relapsed on alcohol and heroin. he also uses benzos. He says he felt depressed and suicidal again due to homelessness, his main issue, and came to [facility]. when he is not accepted and oh'ed with a referral to methadone program, he took some seroquel pills from his belongings. This happened after discharge but in front of a staff who tried to stop him. He was later seen as spitting 12 pills from his mouth and he thinks he may have swallowed only a few. he was given 100 mg seroquel for sleep, he says. He admits to the sba underwriter that his intention was not to but to show he needed help. He is currently NOT suicidal and contracts for safety. He is aware that he could go back to either [facility] or [facility] and get admitted. He is also highly encouraged to consider Vivitrol or suboxone/methaodne due to numerous relapses and ongoing drug/alcohol use. He shoots and snorts 1.5 bundles of heroin daily. He last used yesterday before coming to the hospital this morning. He also drinks a couple of pints of vodka daily. He went to detox twice at for his alcohol and heroin use. Past psych hx: Many psych admissions with depressive sxs related to his heavy drug and alcohol use. Denies rehab. 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 Patient was previously taking Zoloft and Depakote in the past for alleged bipolar disorder but most likely recurrent depression. PMHx: denies Family Hx: Patient has a history of family and friends doing drugs. Allergies: Penicillin, egg, fish Current Medications: Active Medications Generic Name Dose Route Start Last Admin Trade Name Freq PRN Reason Stop Dose Admin Aripiprazole 5 mg 08/06/16 22:00 Abilify PO HS BURTON Benztropine Mesylate 1 mg 08/06/16 11:13 Cogentin PO Q2H PRN Acute dystonia max 4x/24h Diphenhydramine HCl 50 mg 08/06/16 11:13 08/06/16 12:07 Benadryl PO 50 mg Q6H PRN Administration Anxiety Gabapentin 400 mg 08/06/16 14:00 Neurontin PO TID BURTON Ibuprofen 600 mg 08/06/16 12:49 Motrin Tab PO Q6H PRN Pain, moderate (4-7) Sertraline HCl 100 mg 08/06/16 11:30 08/06/16 12:05 Zoloft PO 100 mg DAILY BURTON Administration Past Psychiatric History - Past Psychiatric History Previous Treatment History: Inpatient Pertinent Medical Hx (Current Medical&Sleep Prob, Allergies): Allergies Allergy/AdvReac Type Severity Reaction Status Date / Time FISH Allergy Severe RASH Verified 07/30/16 12:48 EGG Allergy RASH Verified 07/30/16 12:48 Penicillins Allergy RASH Verified 07/30/16 12:48 Doxepin [Sinequan] 10 mg PO HS #30 cap 07/29/16 Folic Acid 1 mg PO DAILY #30 tab 07/29/16 Gabapentin [Neurontin] 800 mg PO QID #120 tab 07/29/16 Nicotine 21 mg/24 hr [Nicoderm Cq] 1 patch TD DAILY #30 patch 07/29/16 QUEtiapine [Seroquel] 100 mg PO HS #30 tab 07/29/16 Sertraline [Zoloft] 100 mg PO DAILY #30 tab 07/29/16 Thiamine [Vitamin B1 Tab] 100 mg PO DAILY #30 tab 07/29/16 Review of Systems - Psychiatric Psychiatric: Abnormal Sleep Pattern, Anxiety, Difficulty Concentrating. absent : Hallucinations, Homicidal Ideation, Suicidal Ideation Mental Status Examination - Personal Presentation Personal Presentation: Looks stated age - Affect Affect: Constricted - Motor Activity Motor Activity: Calm - Reliability in Providing Information Reliability in Providing Information: Good - Speech Speech: Organized - Mood Mood: Depressed, Anxious - Formal Thought Process Formal Thought Process: No Impairment - Cognitive Functions Orientation: Person, Place, Situation, Time Sensorium: Alert Attention/Concentration: Attentive Estimate of Intelligence: Average Judgement: Intact, as evidence by: Insight regarding need for hospitalization Memory: Recent intact, as evidence by: Ability to recall events of the day, Remote intact, as evidenced by: Abilit to recall sig. life events - Risk Risk: Diminished functioning - Strength & Assets Inventory Strength & Assets Inventory: Cooperative - Limitations Limitations: Living alone, Other DSM 5 DX - DSM 5 DSM 5 Diagnosis: Major depressive disorder, recurrent, moderate Opioid use disorder - severe Alcohol use disorder - severe Sedative, hypnotic and anxiolytic use d/o Personality d/o - unspecified - Recommended/Plan of Treatment Treatment Recommendations and Plan of Treatment: Continue zoloft Hold seroquel but add abilify to augment zoloft Gabapentin for augmentation of prolonged wdw sxs and anxiety As needed meds and vitamins Attend groups and activities [place] for abstinence and CBT for relapse prevention Support and psychoeducation Consider and encourage MAT Refer to after care at [facility] or [facility] again 33 min Projected ELOS: 3-4 days Prognosis: Good with treatment and good referral Discharge Plan and Discharge Criteria: No dep sxs or SI Refer to inpatient rehab - Smoking Cessation Smoking Cessation Initiated: Yes
[2016-08-07 08:00] VITALS: RESP 18
--- NOTE | 2016-08-07 14:15 | PCM.PYCHPN ---
Psychiatric Progress Note - Psychiatric Progress Note Patient seen today, length of contact: 16 min Patient Chief Complaint: "I am so so" Problems Identified/Issues Discussed: The pt is seen, chart reviewed, case discussed with staff. The pt is compliant with medications and reports no side-effects. Symptoms are improving but needs more time to stabilize. After care discussed, support and psychoeducation given. He is accepted by [facility] again but admission is on Thursday which is enough time to stabilize him Medication Change: Yes (increase gabapentin and abilify as planned) Medical Record Reviewed: Yes Mental Status Examination - Cognitive Function Orientation: Person, Place, Situation, Time Memory: Intact Attention: WNL Concentration: Poor Association: WNL Fund of Knowledge: WNL - Mood Mood: Depressed, Anxious - Affect Affect: Constricted - Speech Speech: Appropriate - Formal Thought Process Formal Thought Process: No Impairment - Suicidal Ideation Suicidal Ideation: No - Homicidal Ideation Homicidal Ideation: No Goal/Treatment Plan - Goal/Treatment Plan Need for Continued Stay: Discharge may exacerbated symptoms, Severe functional impairment Progress Toward Problem(s) and Goals/Treatment Plan: Continue zoloft Hold seroquel but added abilify to augment zoloft Gabapentin for augmentation of prolonged wdw sxs and anxiety As needed meds and vitamins Attend groups and activities [place] for abstinence and CBT for relapse prevention Support and psychoeducation Consider and encourage MAT Refer to [facility] Estimated Date of D/C: 08/11/16 - Smoking Cessation Smoking Cessation Initiated: Yes
--- NOTE | 2016-08-07 19:41 | CARD ---
APPROVED REPORT EKG Measurement Heart [id number] <Conclusion> Normal sinus rhythm Normal ECG
--- NOTE | 2016-08-08 18:58 | PCM.PYCHPN ---
Psychiatric Progress Note - Psychiatric Progress Note Patient seen today, length of contact: 16 min Patient Chief Complaint: "I can't sleep" Problems Identified/Issues Discussed: The pt is seen, chart reviewed, case discussed with staff. Support given, CBT and KS used briefly No new symptoms reported, improving slowly and needs some more time No SEs from medications, risks discussed. After care discussed - [facility] on Thursday Medication Change: Yes (add rmeron for sleep) Medical Record Reviewed: Yes Mental Status Examination - Cognitive Function Orientation: Person, Place, Situation, Time Memory: Intact Attention: WNL Concentration: Poor Association: WNL Fund of Knowledge: WNL - Mood Mood: Depressed, Anxious - Affect Affect: Constricted - Speech Speech: Appropriate - Formal Thought Process Formal Thought Process: No Impairment - Suicidal Ideation Suicidal Ideation: No - Homicidal Ideation Homicidal Ideation: No Goal/Treatment Plan - Goal/Treatment Plan Need for Continued Stay: Discharge may exacerbated symptoms, Severe functional impairment Progress Toward Problem(s) and Goals/Treatment Plan: Continue zoloft abilify to augment zoloft Gabapentin for augmentation of prolonged wdw sxs and anxiety As needed meds and vitamins Attend groups and activities [place] for abstinence and CBT for relapse prevention Support and psychoeducation Consider and encourage MAT Referred to [facility] again Estimated Date of D/C: 08/11/16
[2016-08-10 07:18] VITALS: O2SAT 98
--- NOTE | 2016-08-11 01:10 | PCM.PYCHPN ---
Psychiatric Progress Note - Psychiatric Progress Note Patient seen today, length of contact: 16 min Patient Chief Complaint: I'M STILL DEPRESSED I STILL HAVE WITHDRAWAL SYMPTOMS Problems Identified/Issues Discussed: SYMPTOM MANAGEMENT TRIGGERS Diagnostic Results: NOTHING ACUTE DSM 5 Symptoms Update: REVIEWED Medication Change: No Medical Record Reviewed: Yes Mental Status Examination - Cognitive Function Orientation: Person, Place, Situation, Time Memory: Intact Attention: WNL Concentration: Poor Association: WNL - Mood Mood: Depressed, Anxious - Affect Affect: Constricted - Speech Speech: Appropriate - Formal Thought Process Formal Thought Process: No Impairment - Suicidal Ideation Suicidal Ideation: No - Homicidal Ideation Homicidal Ideation: No Goal/Treatment Plan - Goal/Treatment Plan Need for Continued Stay: Discharge may exacerbated symptoms, Severe functional impairment Progress Toward Problem(s) and Goals/Treatment Plan: [id number] REMARON ABILIFY OPIATE WITHDRAWAL METHADONE TAPER ALCOHOL WITHDRAWAL LIBRIUM Estimated Date of D/C: 08/11/16 - Smoking Cessation Smoking Cessation Initiated: No
--- NOTE | 2016-08-11 02:56 | PCM.PYCHPN ---
Psychiatric Progress Note - Psychiatric Progress Note Patient seen today, length of contact: 16 min Patient Chief Complaint: I FEEL LOUSY Problems Identified/Issues Discussed: INSOMNIA POOR APPETITE WITHDRAWALL SYMPTOMS DEPRESSIVE SYMPTOMS Medical Problems: NOTHING ACUTE Diagnostic Results: REVIWED DSM 5 Symptoms Update: ANHEDONIA ANERGY Medication Change: No Medical Record Reviewed: Yes Mental Status Examination - Cognitive Function Orientation: Person, Place, Situation, Time Memory: Intact Attention: WNL Concentration: Poor Association: WNL Fund of Knowledge: WNL - Mood Mood: Depressed, Anxious - Affect Affect: Constricted - Speech Speech: Appropriate - Formal Thought Process Formal Thought Process: No Impairment - Suicidal Ideation Suicidal Ideation: No - Homicidal Ideation Homicidal Ideation: No Goal/Treatment Plan - Goal/Treatment Plan Need for Continued Stay: Discharge may exacerbated symptoms, Severe functional impairment Progress Toward Problem(s) and Goals/Treatment Plan: MDD ZOLOFT REMARON ABILIFY OPIATE WITHDRAWAL CBT VA ALCOHOL WITHDRAWAL SUPPORTIVE PSYCHOTHERAPY Estimated Date of D/C: 08/11/16 - Smoking Cessation Smoking Cessation Initiated: Yes
--- NOTE | 2016-08-11 09:30 | PCM.PYCHDC ---
Mental Status Examination - Mental Status Examination Orientation: Person Discharge Summary - Discharge Note Consultations:: List each consultation separately and include: 1. Reason for request. 2. Findings. 3. Follow-up Summary of Hospital Course include:: 1. Description of specific treatment plan utilized for patients during their course of treatmen. 2. Summarize the time- course for resolution of acute symptoms and/or regressed behaviors. 3. Describe issues identified and worked on during hospitalization. 4. Describe medication utilized. 5. Describe medical problems identified and treated. 6. Reassessment of suicide risk Summary of Hospital Course: Patient is a 45 year old single male who is homeless but was living with his brother recently. 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 He has no children. he is well-known to the show card writer. He was recently admitted to [facility] for 8 days, mo'ed to [facility] in [place] but rejected at the door due to an unknown glitch in the referral process. He then got back to [facility] b/c he was "suicidal" and hospitalized another 6 days and this time referred to [facility]. When he arrived for intake yesterday, he was having acute dystonia in his face due to haldol prn given at [facility]. They sent him to [facility] and he is dc'ed from there and the pt got upset again and relapsed on alcohol and heroin. he also uses benzos. He says he felt depressed and suicidal again due to homelessness, his main issue, and came to [facility], [place]. when he is not accepted and mo'ed with a referral to methadone program, he took some seroquel pills from his belongings. This happened after discharge but in front of a staff who tried to stop him. He was later seen as spitting 12 pills from his mouth and he thinks he may have swallowed only a few. he was given 100 mg seroquel for sleep, he says. He admits to the show card writer that his intention was not to but to show he needed help. He is currently NOT suicidal and contracts for safety. He is aware that he could go back to either [facility] or [facility] and get admitted. He is also highly encouraged to consider Vivitrol or suboxone/methaodne due to numerous relapses and ongoing drug/alcohol use. He shoots and snorts 1.5 bundles of heroin daily. He last used yesterday before coming to the hospital this morning. He also drinks a couple of pints of vodka daily. He went to detox twice at for his alcohol and heroin use. Past psych hx: Many psych admissions with depressive sxs related to his heavy drug and alcohol use. Denies rehab. 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 Patient was previously taking Zoloft and Depakote in the past for alleged bipolar disorder but most likely recurrent depression. PMHx: denies Family Hx: Patient has a history of family and friends doing drugs. Allergies: Penicillin, egg, fish - Final Diagnosis (DSM 5) Condition upon Discharge: STABLE Disposition: HOME/ ROUTINE Follow-up Treatment Plan: Continue zoloft abilify to augment zoloft Gabapentin for augmentation of prolonged wdw sxs and anxiety As needed meds and vitamins Attend groups and activities [facility] for abstinence and CBT for relapse prevention Support and psychoeducation Consider and encourage MAT Referred to [facility] Prescriptions/Medication Reconciliation: ARIPiprazole [Abilify] 10 mg PO HS #30 tab Gabapentin [Neurontin] 600 mg PO TID #90 cap Mirtazapine [Remeron] 30 mg PO HS #30 tab Sertraline [Zoloft] 100 mg PO DAILY #30 tab
[2016-08-11 10:25] VITALS: BP 132/90; PULSE 105; TEMP 98.6
== END 2016-08-11 10:45 | disposition home or self-care (01) | DRG 430 ==
LOC: C.ER 06:41 → C.5E 10:49
PROVIDERS: ADMIT Psychiatry & Neurology Psychiatry; ATTEND Psychiatry & Neurology Psychiatry
PROC: HZ52ZZZ Individual Psychotherapy for Substance Abuse Treatment, Cognitive-Behavioral (ICD-10-PCS; principal; 2016-08-06)
PROC: HZ59ZZZ Individual Psychotherapy for Substance Abuse Treatment, Supportive (ICD-10-PCS; 2016-08-06)
PROC: HZ56ZZZ Individual Psychotherapy for Substance Abuse Treatment, Psychoeducation (ICD-10-PCS; 2016-08-06)
PROC: HZ2ZZZZ Detoxification Services for Substance Abuse Treatment (ICD-10-PCS; 2016-08-06)
DX: F33.1 Major depressive disorder, recurrent, moderate (principal); F20.9 Schizophrenia, unspecified; F10.239 Alcohol dependence with withdrawal, unspecified; F11.23 Opioid dependence with withdrawal; F41.9 Anxiety disorder, unspecified; Z59.0 Homelessness

== ENCOUNTER 2017-01-21 10:45 | Inpatient (IN) | payer MEDICAID, OTHER ==
[2017-01-21 10:46] VITALS: BMI 30.8
[2017-01-21 11:34] LABS: BASO # 0.1 K/uL (0.0-0.2); BASO % 0.9 % (0.0-2.0); EOS # 0.1 K/uL (0.0-0.7); EOS % 0.9 % (0.0-4.0); HEMATOCRIT 43.4 % (35.0-51.0); LYMPH # 1.2 K/uL (1.0-4.3); LYMPH % 20.7 % (20.0-40.0); MEAN CORPUSCULAR HEMOGLOBIN 31.5 pg (27.0-31.0); MEAN CORPUSCULAR HGB CONC 33.5 g/dL (33.0-37.0); MEAN PLATELET VOLUME 7.5 fL (7.2-11.7); MONO # 0.4 K/uL (0.0-0.8); MONO % 6.4 % (0.0-10.0); NRBC % 0.1 % (0.0-2.0); RED CELL DISTRIBUTION WIDTH 13.4 % (11.5-14.5); WHITE BLOOD COUNT 5.9 K/uL (4.8-10.8)
[2017-01-21 11:37] LABS: URINE BILIRUBIN NEGATIVE (NEGATIVE); URINE BLOOD NEGATIVE (NEGATIVE); URINE COLOR Colorless (YELLOW); URINE GLUCOSE (UA) NORMAL (Normal); URINE KETONE NEGATIVE (NEGATIVE); URINE LEUKOCYTE ESTERASE NEG Leu/uL (Negative); URINE PROTEIN NEGATIVE (NEGATIVE); URINE UROBILINOGEN NORMAL mg/dL (0.2-1.0)
[2017-01-21 11:46] LABS: WBC URINE 1 /hpf (0-5)
[2017-01-21 12:01] LABS: ALCOHOL SERUM 154 mg/dl (0-10); ALKALINE PHOSPHATASE 74 U/L (38-126); ALT/SGPT 46 U/L (21-72); AST/SGOT 39 U/L (17-59); BILIRUBIN,TOTAL 0.7 mg/dL (0.2-1.3); BLOOD UREA NITROGEN 11 mg/dL (9-20); CALCIUM 8.2 mg/dl (8.6-10.4); CARBON DIOXIDE 25 mmol/L (22-30); CHLORIDE 103 mmol/L (98-107); GFR AFRICAN-AMERICAN > 60; GLUCOSE,RANDOM 82 mg/dL (75-110); SODIUM 137 mmol/L (132-148); TOTAL PROTEIN 6.2 g/dL (6.3-8.3)
[2017-01-21 12:12] LABS: ALB/GLOB RATIO 1.8 (1.0-2.1)
--- NOTE | 2017-01-21 12:44 | C.PDOC ---
History Of Present Illness 46 y/o male presents to ED for heroin and etoh detox; was prescreened for detox admission prior to arrival. He notes last alcohol use was today at approx 8 AM. He denies any physical complaints, including tremors, nausea/vomiting, chest pain, SOB. Time Seen by Provider: 01/21/17 10:49 Chief Complaint (Nursing): Substance Abuse History Per: Patient History/Exam Limitations: no limitations Onset/Duration Of Symptoms: Persistent Current Symptoms Are (Timing): Still Present Modifying Factor(s): Alcohol, Narcotics Severity: Moderate Past Medical History Reviewed: Historical Data, Nursing Documentation, Vital Signs Vital Signs: Last Vital Signs Temp 98 F 01/24/17 15:28 Pulse 102 H 01/24/17 15:28 Resp 18 01/24/17 15:28 BP 126/75 01/24/17 15:28 Pulse Ox 97 01/24/17 15:28 - Medical History PMH: Anxiety, Bipolar Disorder, Depression, Schizophrenia - [facility] Procedures ALCOHOL DETOXIFICATION (08/25/12) DETOXIFICATION SERVICES FOR SUBSTANCE ABUSE TREATMENT (08/06/16) GROUP BUTT WELDER FOR SUBSTANCE ABUSE TREATMENT, PSYCHOEDUCATION (02/12/15) GROUP PSYCHOTHERAPY (09/06/16) INDIV BUTT WELDER FOR SUBSTANCE ABUSE, COGNITIVE BEHAVIORAL (07/22/16) INDIV PSYCHOTHERAPY FOR SUBSTANCE ABUSE TREATMENT, SUPPORT (08/06/16) INDIV PSYCHOTHERAPY FOR SUBSTANCE ABUSE, COGNITIV BEHAVIORAL (08/06/16) INDIV PSYCHOTHERAPY FOR SUBSTANCE ABUSE, PSYCHOEDUCATION (08/06/16) INDIVID PSYCHOTHERAP NEC (01/12/13) INDIVIDUAL PSYCHOTHERAPY, BEHAVIORAL (07/30/16) INDIVIDUAL PSYCHOTHERAPY, COGNITIVE-BEHAVIORAL (09/06/16) INDIVIDUAL PSYCHOTHERAPY, SUPPORTIVE (05/28/16) MEDICATION MANAGEMENT (08/15/16) MEDS MGMT FOR SUBSTANCE ABUSE TREATMENT, ANTABUSE (05/28/16) MEDS MGMT FOR SUBSTANCE ABUSE TREATMENT, METHADONE MAINT (05/28/16) OTHER GROUP THERAPY (01/12/13) Family History: States: No Known Family Hx - Social History Hx Tobacco Use: Yes Hx Alcohol Use: Yes Hx Substance Use: Yes - Immunization History Hx Tetanus Toxoid Vaccination: Yes Hx Influenza Vaccination: No Hx Pneumococcal Vaccination: No Review Of Systems Except As Marked, All Systems Reviewed And Found Negative. Constitutional: Negative for: Fever, Chills Cardiovascular: Negative for: Chest Pain, Palpitations Respiratory: Negative for: Cough, Shortness of Breath, Wheezing Gastrointestinal: Negative for: Nausea, Vomiting, Abdominal Pain, Diarrhea Skin: Negative for: Rash Psych: Negative for: Withdrawal Physical Exam - Physical Exam Appears: Well, Non-toxic, Unkempt, Other (comfortable) Skin: Normal Color, Warm, Dry Head: Atraumatic, Normacephalic Eye(s): bilateral: Normal Inspection Oral Mucosa: Moist Cardiovascular: Rhythm Regular Respiratory: Normal Breath Sounds, No Rales, No Rhonchi, No Wheezing Gastrointestinal/Abdominal: Normal Exam, Bowel Sounds, Soft, No Tenderness Back: Normal Inspection Extremity: Normal ROM Neurological/Psych: Oriented x3 ED Course And Treatment - Laboratory Results Result Diagrams: 01/21/17 11:26 12 11:26 O2 Sat by Pulse Oximetry: 97 (RA) Pulse Ox Interpretation: Normal Progress Note: Blood work, UA, UDS ordered and reviewed. Patient given PO Librium prior to going to detox floor. Patient medically cleared - accepted for detox admission by Dr. Partida Disposition - Disposition Disposition: HOSPITALIZED Disposition Time: 12:36 Condition: STABLE - Clinical Impression Clinical Impression: Alcohol dependence, Heroin dependence - Scribe Statement The provider has reviewed the documentation as recorded by the Scribe SM All medical record entries made by the Scribe were at my direction and personally dictated by me. I have reviewed the chart and agree that the record accurately reflects my personal performance of the history, physical exam, medical decision making, and the department course for this patient. I have also personally directed, reviewed, and agree with the discharge instructions and disposition. Decision To Admit - Pt Status Changed To: Hospital Disposition Of: Inpatient - Admit Certification Admit to Inpatient:: After my assessment, the patient will require hospitalization for at least two midnights. This is because of the severity of symptoms shown, intensity of services needed, and/or the medical risk in this patient being treated as an outpatient. - InPatient: Physician Admission Certification: I certify that this patient requires 2 or more midnights of care for the following reason:: see notes - . Bed Request Type: Detox Admitting Physician: Jose Partida Patient Diagnosis: Alcohol dependence, Heroin dependence
[2017-01-21] MEDS ORDERED: Aluminum Hydroxide/Magnesium Hydroxide Susp (30 mL) PO PRN (13:15)
--- NOTE | 2017-01-21 13:55 | PCM.BM ---
<Flor Dumont - Last Filed: 01/21/17 13:53> Treatment Plan Problems - Problems identified on initial assessmt potential for alcohol withdrawals Date Initiated: 01/21/17 Assessment reference: NA Status: Active potential for opiate withdrawals Date Initiated: 01/21/17 Assessment reference: NA Status: Active Treatment assets and liabiliti Patient Assests: adapts well, cooperative, motivated, ADL independent, physically healthy, negotiates basic needs, good interpersonal skills Patient Liabilities: financial problems, substance abuse - Milieu Protocol Maintain good personal hygiene: daily Encourage regular showers, daily Remind patient to perform daily oral care, daily Assist patient to perform ADL's Conduct patient checks and document Observation sheet: Q15 minutes Maintain personal safety: every shift Educate patient to report safety concerns to staff, every shift Monitor environment for contraband/sharps Medication safety: Monitor for expected outcome, potential side effects: every shift, Assess barriers to learning: every shift, Assess readiness for medication education: every shift <Jose Partida - Last Filed: 01/22/17 00:35> - Diagnosis (1) Opioid use disorder, severe, dependence Status: Acute Interventions: 01/22/17 00:36 * Assess 7x/week regarding severity of withdrawal * Educate regarding risks, benefits, side effects and alternatives of medications * Use Motivational Interviewing for abstinence * Use CBT for relapse prevention * Medication management for withdrawal symptoms * Encourage medication assisted treatment * (2) Alcohol use disorder, severe, dependence Status: Acute Interventions: 01/22/17 00:36 * Assess 7x/week regarding severity of withdrawal * Educate regarding risks, benefits, side effects and alternatives of medications * Use Motivational Interviewing for abstinence * Use CBT for relapse prevention * Medication management for withdrawal symptoms * Encourage medication assisted treatment * <Bailee Morin - Last Filed: 01/22/17 11:52> Family Contact Family involvement: Famliy/SO not involved Family contact: Patient declines to allow family contact at present - Goals for Treatment Patient goals for treatment: Complete detox and apply for the [facility]. Discharge/Continuing Care - Education Needs Education Needs: Patient Medication, Patient Diagnosis/Disease Process, Patient Coping Skills, Patient Anger Management skills, Patient Placement options, Patient Community resources - Discharge Discharge Criteria: No longer exhibiting s/s of withdrawal, Reduction of target symptoms Discharge to:: Substance Abuse Rehab - Treatment Team Participation Patient/Family/SO Statement: 01/22/17 11:52 "I [facility] go to the [facility] Discussed with Family/SO: No Was Patient/Family/SO present at Treatment Team Meeting: Yes
[2017-01-21] MEDS: Multiple Vitamins Tab PO SCH (14:10)
--- NOTE | 2017-01-21 15:19 | PCM.PSYCH ---
Initial Psychiatric Evaluation - Initial Psychiatric Evaluation Type of Admission: Voluntary Legal Status: Capacity Chief Complaint (in patient's own words): "I relapsed" History of Present Illness and Precipitating Events: This patient is a 46 year old male who lives with his brother. He is single with no children and is unemployed. Patient was admitted to psychiatry at [facility] in August 2016 for substance- induced mood disorder and alcohol/heroin/benzodiazepine use disorder. He reports : alcohol use, average 3 pints of beer daily; heroin use, average 2 bundles daily; marijuana use daily; and Xanax use, average 1 stick daily. He denies any cocaine use, LSD use, PCP use, or other drug use. He denies any previous seizures or delirium tremens. Patient denies any feelings of depression, anxiety, or paranoia. He denies any auditory or visual hallucinations. He denies any suicidal or homicidal ideations. He hopes to go to the [facility] after this detox. Past medical history: denies Past psychiatric history: numerous inpatient admissions for depressive symptoms Family psychiatric history: denies Family substance use: family/friends Current Medications: Active Medications Generic Name Dose Route Start Last Admin Trade Name Freq PRN Reason Stop Dose Admin Al Hydrox/Mg Hydrox/Simethicone 30 ml 01/21/17 13:15 Maalox 30 Ml PO TID PRN Indigestion / Heartburn Chlordiazepoxide 25 mg 01/21/17 18:00 Librium PO 01/25/17 17:59 Q6 BURTON Taper Chlordiazepoxide 25 mg 01/21/17 13:14 Librium PO Q4H PRN Alcohol Withdrawal Clonidine HCl 0.1 mg 01/21/17 13:14 01/21/17 14:10 Catapres PO 0.1 mg Q4H PRN Administration Symptoms of alcohol withdrawl Folic Acid 1 mg 01/21/17 13:15 01/21/17 14:10 Folic Acid PO 1 mg DAILY BURTON Administration Gabapentin 300 mg 01/21/17 18:00 Neurontin PO BID BURTON Hydroxyzine HCl 50 mg 01/21/17 13:15 Atarax PO Q6H PRN Anxiety Ibuprofen 600 mg 01/21/17 13:15 Motrin Tab PO Q6H PRN Pain, moderate (4-7) Loperamide HCl 2 mg 01/21/17 13:15 Imodium PO Q8 PRN Diarrhea Mirtazapine 15 mg 01/21/17 22:00 Remeron PO HS BURTON Multivitamins 1 tab 01/21/17 13:15 01/21/17 14:10 Hexavitamin PO 1 tab DAILY BURTON Administration Ondansetron HCl 4 mg 01/21/17 13:15 Zofran Tab PO Q8 PRN Nausea/Vomiting Thiamine HCl 100 mg 01/21/17 13:15 01/21/17 14:10 Vitamin B1 Tab PO 100 mg DAILY BURTON Administration Trazodone HCl 100 mg 01/21/17 13:14 Desyrel PO HS PRN Insomnia Past Psychiatric History - Past Psychiatric History Pertinent Medical Hx (Current Medical&Sleep Prob, Allergies): Allergies Allergy/AdvReac Type Severity Reaction Status Date / Time FISH Allergy Severe RASH Verified 01/21/17 10:53 EGG Allergy RASH Verified 01/21/17 10:53 haloperidol [From Haldol] Allergy SHORTNESS Verified 01/21/17 10:53 OF BREATH Penicillins Allergy RASH Verified 01/21/17 10:53 No Known Home Med 01/21/17 Review of Systems - Review of Systems All systems: reviewed and no additional remarkable complaints except - Neurological Neurological: absent: Convulsions, Tremor - Psychiatric Psychiatric: Difficulty Concentrating, Irritability. absent: Anxiety, Auditory Hallucinations, Depression, Homicidal Ideation, Paranoia, Suicidal Ideation, Visual Hallucinations Mental Status Examination - Personal Presentation Personal Presentation: Looks older than stated age - Affect Affect: Constricted - Motor Activity Motor Activity: Calm - Reliability in Providing Information Reliability in Providing Information: Fair - Speech Speech: Organized - Mood Mood: Depressed, Anxious - Formal Thought Process Formal Thought Process: No Impairment - Obsessions/Compulsions Obsessions: No Compulsions: No - Cognitive Functions Orientation: Person, Place, Situation, Time Sensorium: Alert Attention/Concentration: Attentive Abstract Thinking: [place] Estimate of Intelligence: Average Judgement: Intact, as evidence by: Insight regarding need for hospitalization Memory: Recent intact, as evidence by: Ability to recall events of the day, Remote intact, as evidenced by: Abilit to recall sig. life events - Risk Risk: Diminished functioning DSM 5 DX - DSM 5 DSM 5 Diagnosis: Alcohol use disorder, severe Alcohol withdrawal Sedative/hypnotic/anxiolytic use disorder, severe - Recommended/Plan of Treatment Treatment Recommendations and Plan of Treatment: Librium detox Subutex detox Gabapentin for augmentation As needed medications Attend groups and activities Supportive therapy and psychoeducation [place] for abstinence CBT for relapse prevention Encourage MAT Refer to rehab or IOP, and self-help groups. 32 min Projected ELOS: 4-5 days Prognosis: Good with treatment Discharge Plan and Discharge Criteria: No withdrawal symptoms Refer to rehab
[2017-01-21] MEDS: Buprenorphine Hydrochloride 2 mg SL ONE ×2 (18:26→18:31)
[2017-01-21] MEDS ORDERED: Buprenorphine Hydrochloride 2 mg SL ONE ×2 (18:32→20:00)
[2017-01-22] MEDS: Multiple Vitamins Tab PO SCH (09:29)
[2017-01-22] MEDS: Buprenorphine Hydrochloride 2 mg SL SCH (09:30)
[2017-01-22] MEDS: Bacitracin 500 Units/gm Oint Foilpak UD TOP SCH ×2 (11:09→17:11)
--- NOTE | 2017-01-22 13:20 | PCM.PYCHPN ---
Psychiatric Progress Note - Psychiatric Progress Note Patient seen today, length of contact: 17 Patient Chief Complaint: "I'm okay" Problems Identified/Issues Discussed: This patient was seen, chart reviewed, and case discussed with staff. Patient reports poor sleep. He requests medication changes to help with sleep. He also reports withdrawal symptoms of "shakes, weakness, and aches." He offers no other complaints. Patient is compliant with medications and denies any side effects. Symptoms persist and need more time to stabilize. After care discussed, he hopes to go to [facility] [place] [facility] and will work with unit staff. Support and psychoeducation given. Medication Change: Yes ( Librium/Subutex taper, increase Remeron ) Medical Record Reviewed: Yes Mental Status Examination - Cognitive Function Orientation: Person, Place, Situation, Time Memory: Impaired Attention: Poor Concentration: Poor Association: WNL Fund of Knowledge: Poor - Mood Mood: Depressed, Anxious - Affect Affect: Constricted - Speech Speech: Soft - Formal Thought Process Formal Thought Process: No Impairment - Suicidal Ideation Suicidal Ideation: No - Homicidal Ideation Homicidal Ideation: No Goal/Treatment Plan - Goal/Treatment Plan Need for Continued Stay: Remain at risks for inpatient hospitalization, Discharge may exacerbated symptoms, Severe functional impairment Progress Toward Problem(s) and Goals/Treatment Plan: Librium detox Subutex detox Gabapentin for augmentation As needed medications Attend groups and activities Supportive therapy and psychoeducation [place] for abstinence CBT for relapse prevention Encourage MAT Refer to rehab or IOP, and self-help groups. Estimated Date of D/C: 01/26/17
[2017-01-23] MEDS: Multiple Vitamins Tab PO SCH (10:04)
[2017-01-23] MEDS: Buprenorphine Hydrochloride 2 mg SL SCH (10:05)
[2017-01-23] MEDS: Bacitracin 500 Units/gm Oint Foilpak UD TOP SCH ×2 (10:20→18:28)
--- NOTE | 2017-01-23 14:32 | PCM.PYCHPN ---
Psychiatric Progress Note - Psychiatric Progress Note Patient seen today, length of contact: 16 Patient Chief Complaint: "I'm getting better" Problems Identified/Issues Discussed: This patient was seen, chart reviewed, and case discussed with staff. Patient reports poor sleep, again requests medication changes. He denies any withdrawal symptoms today. He offers no other complaints. Patient is compliant with medications and denies any side effects. Symptoms are improving but need more time to stabilize. Aftercare discussed, support and psychoeducation given. Medication Change: Yes ( Librium/Subutex taper, add Seroquel, add Nicoderm) Medical Record Reviewed: Yes Mental Status Examination - Cognitive Function Orientation: Person, Place, Situation, Time Memory: Impaired Attention: Poor Concentration: Poor Association: WNL Fund of Knowledge: Poor - Mood Mood: Depressed, Anxious - Affect Affect: Constricted - Speech Speech: Soft - Formal Thought Process Formal Thought Process: No Impairment - Suicidal Ideation Suicidal Ideation: No - Homicidal Ideation Homicidal Ideation: No Goal/Treatment Plan - Goal/Treatment Plan Need for Continued Stay: Remain at risks for inpatient hospitalization, Discharge may exacerbated symptoms, Severe functional impairment Progress Toward Problem(s) and Goals/Treatment Plan: Librium detox Subutex detox Gabapentin for augmentation As needed medications Attend groups and activities Supportive therapy and psychoeducation [place] for abstinence CBT for relapse prevention Encourage MAT Refer to rehab or IOP, and self-help groups. Estimated Date of D/C: 01/26/17
--- NOTE | 2017-01-24 09:26 | PCM.PYCHPN ---
Psychiatric Progress Note - Psychiatric Progress Note Patient seen today, length of contact: 16 min Patient Chief Complaint: I am still withdrawing.' Problems Identified/Issues Discussed: Patient seen and evaluated, chart reviewed and discussed with the nurse. Patient still reports withdrawal symptoms including nausea, headaches, joint pains and sweating. He reports irritable mood but denies any feelings of hopelessness and helplessness. He denies any SI/HI/AVH but remained isolated, and withdrawn. He is taking medication and denies any side effects. He is asking for more neurontin. He needs more time for stabilization. Supportive therapy and psychoeducation were given. Medication Change: Yes ( Librium/Subutex taper, add Seroquel, add Nicoderm) Medical Record Reviewed: Yes Mental Status Examination - Cognitive Function Orientation: Person, Place, Situation, Time Memory: Impaired Attention: WNL Concentration: WNL Association: WNL Fund of Knowledge: Poor - Mood Mood: Depressed, Anxious - Affect Affect: Constricted - Speech Speech: Soft - Formal Thought Process Formal Thought Process: No Impairment - Suicidal Ideation Suicidal Ideation: No - Homicidal Ideation Homicidal Ideation: No Goal/Treatment Plan - Goal/Treatment Plan Need for Continued Stay: Remain at risks for inpatient hospitalization, Discharge may exacerbated symptoms, Severe functional impairment Progress Toward Problem(s) and Goals/Treatment Plan: Librium detox Subutex detox Increase Gabapentin As needed medications Attend groups and activities Supportive therapy and psychoeducation [place] for abstinence CBT for relapse prevention Encourage MAT Refer to rehab or IOP, and self-help groups. Estimated Date of D/C: 01/26/17 - Smoking Cessation Smoking Cessation Initiated: No
[2017-01-24] MEDS: Buprenorphine Hydrochloride 2 mg SL SCH (09:36)
[2017-01-24] MEDS: Multiple Vitamins Tab PO SCH (09:36)
[2017-01-24] MEDS: Bacitracin 500 Units/gm Oint Foilpak UD TOP SCH ×2 (10:21→17:34)
[2017-01-25] MEDS: Bacitracin 500 Units/gm Oint Foilpak UD TOP SCH ×2 (09:30→18:07)
[2017-01-25] MEDS: Multiple Vitamins Tab PO SCH (09:34)
[2017-01-25] MEDS ORDERED: Buprenorphine Hydrochloride 2 mg SL ONE (10:00)
--- NOTE | 2017-01-25 19:00 | PCM.PYCHPN ---
Psychiatric Progress Note - Psychiatric Progress Note Patient seen today, length of contact: 15 minutes Patient Chief Complaint: I am feeling better Problems Identified/Issues Discussed: Patient seen, chart reviewed, case discussed with the staff. Issues related to illness and treatment were discussed with the patient and staff. Reported compliant with treatment with no adverse effects. Tolerating treatment very well. At the time of evaluation, patient was awake, alert and oriented 3. Denied any delusions, auditory or visual hallucinations, suicidal ideations or homicidal ideations at the time of evaluation. Medical Problems: None reported Diagnostic Results: Reviewed DSM 5 Symptoms Update: Improving with treatment Medication Change: No Medical Record Reviewed: Yes Mental Status Examination - Cognitive Function Orientation: Person, Place, Situation, Time Memory: Intact Attention: WNL Concentration: WNL Association: WN Fund of Knowledge: [facility] Decription of patient's judgement and insights: Fair - Mood Mood: Neutral - Affect Affect: Other (Appropriate) - Speech Speech: Soft - Formal Thought Process Formal Thought Process: No Impairment Psychotic Thoughts and Behaviors: None - Suicidal Ideation Suicidal Ideation: No - Homicidal Ideation Homicidal Ideation: No Goal/Treatment Plan - Goal/Treatment Plan Need for Continued Stay: Remain at risks for inpatient hospitalization, Discharge may exacerbated symptoms, Severe functional impairment Progress Toward Problem(s) and Goals/Treatment Plan: Improving Patient education Supportive therapy Continue treatment as before Patient wants to go to [facility] for follow-up care after discharge from the hospital. Estimated Date of D/C: 01/26/17 - Smoking Cessation Smoking Cessation Initiated: Yes
[2017-01-26 06:27] VITALS: PULSE 76; O2SAT 98
[2017-01-26 08:49] VITALS: BP 117/69; RESP 20; TEMP 97.7
--- NOTE | 2017-01-26 08:49 | PCM.PYCHDC ---
Mental Status Examination - Mental Status Examination Orientation: Person, Place, Situation, Time Memory: Intact Mood: Neutral Affect: Broad Speech: Appropriate Attention: WNL Concentration: WNL Association: WNL Fund of Knowledge: WNL Formal Thought Process: No Impairment Suicidal Ideation: No Current Homicidal Ideation?: No Discharge Summary - Discharge Note Reason for Hospitalization: alcohol/heroin detox Psychiatric History (includes Medical, Family, Personal Hx): numerous admissions for depressive symptoms Consultations:: List each consultation separately and include: 1. Reason for request. 2. Findings. 3. Follow-up Summary of Hospital Course include:: 1. Description of specific treatment plan utilized for patients during their course of treatmen. 2. Summarize the time- course for resolution of acute symptoms and/or regressed behaviors. 3. Describe issues identified and worked on during hospitalization. 4. Describe medication utilized. 5. Describe medical problems identified and treated. 6. Reassessment of suicide risk Summary of Hospital Course: On admission: This patient is a 46 year old male who lives with his brother. He is single with no children and is unemployed. Patient was admitted to psychiatry at [facility] in August 2016 for substance- induced mood disorder and alcohol/heroin/benzodiazepine use disorder. He reports : alcohol use, average 3 pints of beer daily; heroin use, average 2 bundles daily; marijuana use daily; and Xanax use, average 1 stick daily. He denies any cocaine use, LSD use, PCP use, or other drug use. He denies any previous seizures or delirium tremens. Patient denies any feelings of depression, anxiety, or paranoia. He denies any auditory or visual hallucinations. He denies any suicidal or homicidal ideations. He hopes to go to the [facility] after this detox. Past medical history: denies Past psychiatric history: numerous inpatient admissions for depressive symptoms Family psychiatric history: denies Family substance use: family/friends Hospital course: The patient was admitted and started on treatment with psychotherapy, support, psychoeducation, and medications. MT and CBT used. Patient attended groups and activities, as well as milieu therapy. All the risks and benefits of medications are discussed, and the patient understood and agreed. Patient improved with the treatments provided. After care discussed with the patient. - Final Diagnosis (DSM 5) Condition upon Discharge: STABLE DSM 5: Alcohol use disorder, severe Alcohol withdrawal Sedative/hypnotic/anxiolytic use disorder, severe Disposition: HOME/ ROUTINE Follow-up Treatment Plan: Continue below medications after discharge Follow after care plan as discussed Use relapse prevention skills Return to ER or call 911 if suicidal, homicidal, or if symptoms relapse Stay away from stress, alcohol, and drugs See primary doctor regularly and get labs Prescriptions/Medication Reconciliation: Gabapentin [Neurontin] 300 mg PO TID #90 cap Mirtazapine [Remeron] 30 mg PO HS #30 tab QUEtiapine [SEROquel] 50 mg PO HS #30 tab
[2017-01-26] MEDS ORDERED: Buprenorphine Hydrochloride 2 mg SL ONE (09:00)
[2017-01-26] MEDS: Multiple Vitamins Tab PO SCH (09:36)
[2017-01-26] MEDS: Bacitracin 500 Units/gm Oint Foilpak UD TOP SCH (09:38)
== END 2017-01-26 11:50 | disposition home or self-care (01) | DRG 745 ==
LOC: C.ER 10:45 → C.7D 12:40
PROVIDERS: ADMIT Psychiatry & Neurology Psychiatry; ATTEND Psychiatry & Neurology Psychiatry
PROC: HZ2ZZZZ Detoxification Services for Substance Abuse Treatment (ICD-10-PCS; principal; 2017-01-21)
DX: F10.239 Alcohol dependence with withdrawal, unspecified (principal); F11.10 Opioid abuse, uncomplicated; F10.220 Alcohol dependence with intoxication, uncomplicated; Y90.6 Blood alcohol level of 120-199 mg/100 ml; F12.90 Cannabis use, unspecified, uncomplicated; F31.9 Bipolar disorder, unspecified; Z87.891 Personal history of nicotine dependence

== ENCOUNTER 2017-07-22 14:19 | Inpatient (IN) | payer MEDICAID, OTHER ==
[2017-07-22 14:19] VITALS: BMI 30.8
--- NOTE | 2017-07-22 15:11 | C.PDOC ---
History Of Present Illness 46yo male, presents to ED requesting detox from heroin and alcohol. Patient also states he occasionally uses other drugs and denies any episodes of alcohol withdrawal seizures in the past. He reports last use was yesterday. Patient denies any fever, chills, chest pain, shortness of breath, and offers no other medical complaints. Time Seen by Provider: 07/22/17 14:43 Chief Complaint (Nursing): Substance Abuse History Per: Patient History/Exam Limitations: no limitations Modifying Factor(s): Alcohol, Cocaine Additional History Per: Patient Past Medical History Reviewed: Historical Data, Nursing Documentation, Vital Signs Vital Signs: Last Vital Signs Temp 98.5 F 07/22/17 14:24 Pulse 84 07/22/17 14:24 Resp 18 07/22/17 14:24 BP 143/98 H 07/22/17 14:24 Pulse Ox 97 07/22/17 15:33 - Medical History PMH: Anxiety, Bipolar Disorder, Depression, Schizophrenia Denies: Diabetes, Hepatitis, HIV, HTN, Seizures, Sexually Transmitted Disease Surgical History: No Surg Hx - [facility] Procedures ALCOHOL DETOXIFICATION (08/25/12) DETOXIFICATION SERVICES FOR SUBSTANCE ABUSE TREATMENT (01/21/17) GROUP FOCUSER FOR SUBSTANCE ABUSE TREATMENT, PSYCHOEDUCATION (02/12/15) GROUP PSYCHOTHERAPY (09/06/16) INDIV FOCUSER FOR SUBSTANCE ABUSE, COGNITIVE BEHAVIORAL (07/22/16) INDIV PSYCHOTHERAPY FOR SUBSTANCE ABUSE TREATMENT, SUPPORT (08/06/16) INDIV PSYCHOTHERAPY FOR SUBSTANCE ABUSE, COGNITIV BEHAVIORAL (08/06/16) INDIV PSYCHOTHERAPY FOR SUBSTANCE ABUSE, PSYCHOEDUCATION (08/06/16) INDIVID PSYCHOTHERAP NEC (01/12/13) INDIVIDUAL PSYCHOTHERAPY, BEHAVIORAL (07/30/16) INDIVIDUAL PSYCHOTHERAPY, COGNITIVE-BEHAVIORAL (09/06/16) INDIVIDUAL PSYCHOTHERAPY, SUPPORTIVE (05/28/16) MEDICATION MANAGEMENT (08/15/16) MEDS MGMT FOR SUBSTANCE ABUSE TREATMENT, ANTABUSE (05/28/16) MEDS MGMT FOR SUBSTANCE ABUSE TREATMENT, METHADONE MAINT (05/28/16) OTHER GROUP THERAPY (01/12/13) Family History: States: Unknown Family Hx - Social History Hx Tobacco Use: Yes Hx Alcohol Use: Yes Hx Substance Use: Yes - Immunization History Hx Tetanus Toxoid Vaccination: Yes Hx Influenza Vaccination: No Hx Pneumococcal Vaccination: No Review Of Systems Except As Marked, All Systems Reviewed And Found Negative. Constitutional: Negative for: Fever, Chills Cardiovascular: Negative for: Chest Pain Respiratory: Negative for: Shortness of Breath Physical Exam - Physical Exam Appears: Non-toxic, No Acute Distress Skin: Normal Color Head: Normacephalic Eye(s): bilateral: Normal Inspection Neck: Normal ROM, Supple Chest: Symmetrical Cardiovascular: Rhythm Regular Respiratory: Normal Breath Sounds Gastrointestinal/Abdominal: Normal Exam, Soft, No Tenderness Neurological/Psych: Oriented x3 ED Course And Treatment - Laboratory Results Result Diagrams: 07/22/17 15:11 07/22/17 15:11 Lab Interpretation: Normal (UDS positive for opiates and benzos) O2 Sat by Pulse Oximetry: 97 (RA) Pulse Ox Interpretation: Normal Progress Note: Patient is medically cleared for detox admission. Medical Decision Making Medical Decision Making: Plan: -- Labs -- Urinalysis Progress: 1533 Labs reviewed and within normal limits. Patient medically cleared. Disposition - Disposition Disposition: HOSPITALIZED Disposition Time: 16:07 Condition: STABLE - Clinical Impression Clinical Impression: Opioid use disorder, severe, dependence, Alcohol use disorder, severe, dependence - Scribe Statement The provider has reviewed the documentation as recorded by the Scribe (Ann-Marie Crespo) Provider Attestation: All medical record entries made by the Scribe were at my direction and personally dictated by me. I have reviewed the chart and agree that the record accurately reflects my personal performance of the history, physical exam, medical decision making, and the department course for this patient. I have also personally directed, reviewed, and agree with the discharge instructions and disposition.
[2017-07-22 15:15] LABS: BASO # 0.1 K/uL (0.0-0.2); BASO % 0.9 % (0.0-2.0); EOS # 0.2 K/uL (0.0-0.7); EOS % 2.7 % (0.0-4.0); HEMOGLOBIN 14.1 g/dL (12.0-18.0); MEAN CELL VOLUME 92.7 fL (80.0-94.0); MEAN CORPUSCULAR HEMOGLOBIN 31.7 pg (27.0-31.0); MEAN CORPUSCULAR HGB CONC 34.2 g/dL (33.0-37.0); MEAN PLATELET VOLUME 7.2 fL (7.2-11.7); MONO # 0.3 K/uL (0.0-0.8); MONO % 5.5 % (0.0-10.0); NEUT # 3.4 K/uL (1.8-7.0); NEUT % 56.9 % (50.0-75.0); NRBC % 0.1 % (0.0-2.0); RBC 4.46 Mil/uL (4.40-5.90); RED CELL DISTRIBUTION WIDTH 13.6 % (11.5-14.5)
[2017-07-22 15:24] LABS: SQUAMOUS EPITHIAL < 1 /hpf (0-5); URINE BILIRUBIN NEGATIVE (NEGATIVE); URINE BLOOD NEGATIVE (NEGATIVE); URINE CLARITY Clear (Clear); URINE COLOR Colorless (YELLOW); URINE GLUCOSE (UA) NORMAL (Normal); URINE LEUKOCYTE ESTERASE NEG Leu/uL (Negative); URINE PROTEIN NEGATIVE (NEGATIVE); URINE UROBILINOGEN NORMAL mg/dL (0.2-1.0)
[2017-07-22 15:26] LABS: ALB/GLOB RATIO 1.4 (1.0-2.1); ALBUMIN 4.2 g/dL (3.5-5.0); ALT/SGPT 25 U/L (21-72); AST/SGOT 28 U/L (17-59); BLOOD UREA NITROGEN 11 mg/dL (9-20); GFR AFRICAN-AMERICAN > 60; GFR NON-AFRICAN AMERICAN > 60
[2017-07-22 15:32] LABS: BARBITURATES, UR NEGATIVE (NEGATIVE); PHENCYCLIDINE, UR NEGATIVE (NEGATIVE)
[2017-07-22 15:33] LABS: BENZODIAZEPINES, UR POSITIVE (NEGATIVE); OPIATES, UR POSITIVE (NEGATIVE)
--- NOTE | 2017-07-22 17:21 | PCM.BM ---
Treatment assets and liabiliti Patient Assests: adapts well, cooperative, motivated, ADL independent, physically healthy, negotiates basic needs, good interpersonal skills
--- NOTE | 2017-07-22 17:27 | PCM.BM ---
<Sue Stovall - Last Filed: 07/22/17 17:25> Treatment Plan Problems - Problems identified on initial assessmt potiential for autonomic instability related to alcohol withdrawal Date Initiated: 07/22/17 Time Initiated: 17:26 Assessment reference: NA Status: Active potiential for opiate withdrawal Date Initiated: 07/22/17 Time Initiated: 17:26 Assessment reference: NA Status: Active Treatment assets and liabiliti Patient Assests: adapts well, cooperative, motivated, ADL independent, physically healthy, negotiates basic needs, cognitively intact, good interpersonal skills Patient Liabilities: substance abuse, medical problems - Milieu Protocol Maintain good personal hygiene: daily Encourage regular showers, daily Remind patient to perform daily oral care, daily Assist patient to perform ADL's Maintain personal safety: every shift Educate patient to report safety concerns to staff, every shift Monitor environment for contraband/sharps Medication safety: Monitor for expected outcome, potential side effects: every shift, Assess barriers to learning: every shift, Assess readiness for medication education: every shift <Jose Partida - Last Filed: 07/23/17 11:29> - Diagnosis (1) Alcohol use disorder, severe, dependence Status: Acute Interventions: 07/23/17 11:29 * Assess 7x/week regarding severity of withdrawal * Educate regarding risks, benefits, side effects and alternatives of medications * Use Motivational Interviewing for abstinence * Use CBT for relapse prevention * Medication management for withdrawal symptoms * Encourage medication assisted treatment * (2) Opioid use disorder, severe, dependence Status: Acute Interventions: 07/23/17 11:29 * Assess 7x/week regarding severity of withdrawal * Educate regarding risks, benefits, side effects and alternatives of medications * Use Motivational Interviewing for abstinence * Use CBT for relapse prevention * Medication management for withdrawal symptoms * Encourage medication assisted treatment *
[2017-07-22] MEDS ORDERED: Buprenorphine Hydrochloride 2 mg SL ONE ×2 (18:02→19:17)
[2017-07-23] MEDS: Multiple Vitamins Tab PO SCH (09:16)
[2017-07-23] MEDS: Buprenorphine Hydrochloride 2 mg SL SCH (09:16)
--- NOTE | 2017-07-23 09:50 | PCM.PSYCH ---
Initial Psychiatric Evaluation - Initial Psychiatric Evaluation Type of Admission: Voluntary Legal Status: Capacity Chief Complaint (in patient's own words): "I relapsed" History of Present Illness and Precipitating Events: This patient is a 46 year old male who lives with his brother. 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 He is well-known from previous admissions to detox and dual-diagnosis psych. He reports: 20-25 bags of heroin daily, he drinks 20x 24 oz beers and 10 shots of vodka a day; marijuana use daily; and Xanax use, average 1 stick daily. He denies any cocaine use, LSD use, PCP use, or other drug use. He denies any previous seizures or delirium tremens. Patient denies any feelings of depression, AVH or paranoia. He denies any suicidal or homicidal ideations. He hopes to go to the [facility] again after this detox. It's not clear how he couldn't go last time. He reports anxiety Past medical history: denies Past psychiatric history: numerous inpatient admissions for depressive symptoms intermixed with drug and alcohol use Family psychiatric history: denies Family substance use: family/friends Current Medications: Active Medications Generic Name Dose Route Start Last Admin Trade Name Freq PRN Reason Stop Dose Admin Buprenorphine HCl 8 mg 07/23/17 10:00 07/23/17 09:16 Subutex SL 07/28/17 09:59 8 mg .TAPER BURTON Administration Taper Chlordiazepoxide 25 mg 07/23/17 00:00 07/23/17 05:57 Librium PO 07/26/17 23:59 Not Given Q6 BURTON Taper Chlordiazepoxide 25 mg 07/22/17 18:40 07/23/17 07:00 Librium PO 25 mg Q4H PRN Administration Alcohol Withdrawal Clonidine HCl 0.1 mg 07/22/17 18:23 Catapres PO Q6 PRN high bp Folic Acid 1 mg 07/23/17 10:00 07/23/17 09:15 Folic Acid PO 1 mg DAILY BURTON Administration Multivitamins 1 tab 07/23/17 10:00 07/23/17 09:16 Hexavitamin PO 1 tab DAILY BURTON Administration Thiamine HCl 100 mg 07/23/17 10:00 07/23/17 09:15 Vitamin B1 Tab PO 100 mg DAILY BURTON Administration Trazodone HCl 100 mg 07/22/17 18:24 07/22/17 22:59 Desyrel PO 100 mg HS PRN Administration insomnia Past Psychiatric History - Past Psychiatric History Previous Treatment History: Inpatient Pertinent Medical Hx (Current Medical&Sleep Prob, Allergies): Allergies Allergy/AdvReac Type Severity Reaction Status Date / Time FISH Allergy Severe RASH Verified 07/22/17 14:26 EGG Allergy RASH Verified 07/22/17 14:26 haloperidol [From Haldol] Allergy SHORTNESS Verified 07/22/17 14:26 OF BREATH Penicillins Allergy RASH Verified 07/22/17 14:26 No Known Home Med 07/22/17 Review of Systems - Neurological Neurological: UNREMARKABLE - Psychiatric Psychiatric: Abnormal Sleep Pattern, Anxiety. absent: Depression, Difficulty Concentrating, Hallucinations, Homicidal Ideation, Hopelessness, Irritability, Suicidal Ideation Mental Status Examination - Personal Presentation Personal Presentation: Looks stated age - Affect Affect: Constricted - Motor Activity Motor Activity: Calm - Reliability in Providing Information Reliability in Providing Information: Good - Speech Speech: Organized - Mood Mood: Anxious - Formal Thought Process Formal Thought Process: No Impairment - Cognitive Functions Orientation: Person, Place, Situation, Time Sensorium: Alert Attention/Concentration: Attentive Estimate of Intelligence: Average Judgement: Intact, as evidence by: Insight regarding need for hospitalization Memory: Recent intact, as evidence by: Ability to recall events of the day, Remote intact, as evidenced by: Abilit to recall sig. life events - Risk Risk: Withdrawal, Diminished functioning - Strength & Assets Inventory Strength & Assets Inventory: Family support, Cooperative - Limitations Limitations: Other DSM 5 DX - DSM 5 DSM 5 Diagnosis: Opioid withdrawal Opioid use d/o- severe Alcohol withdrawal Alcohol use d/o- severe Sedative, hypnotic use d/o - severe MICHELLE Depressive d/o - unspecified, in remission now - Recommended/Plan of Treatment Treatment Recommendations and Plan of Treatment: Taper with subutex and librium Gabapentin for augmentation As needed medications All risks, benefits and alternatives of the meds discussed, and the pt agreed and understood. Attend groups and activities Supportive therapy and psychoeducation CO for abstinence CBT for relapse prevention Encourage MAT Refer to rehab or IOP, and self-help groups Smoking cessation with CO Nicotine patch 34 min Projected ELOS: 4-5 days Prognosis: Good with treatment - Smoking Cessation Smoking Cessation Initiated: Yes
[2017-07-23] MEDS ORDERED: Aluminum Hydroxide/Magnesium Hydroxide Susp (30 mL) PO PRN ×2 (21:19→21:30)
[2017-07-24] MEDS: Multiple Vitamins Tab PO SCH (09:19)
[2017-07-24] MEDS: Buprenorphine Hydrochloride 2 mg SL SCH (09:20)
--- NOTE | 2017-07-24 13:33 | PCM.PYCHPN ---
Psychiatric Progress Note - Psychiatric Progress Note Patient seen today, length of contact: 16 min Patient Chief Complaint: "I am OK I guess" Problems Identified/Issues Discussed: The pt is seen, chart reviewed, case discussed with staff. The pt is compliant with medications and reports no side-effects. Symptoms are improving but needs more time to stabilize. After care discussed, support and psychoeducation given. He c/o poor sleep, seroquel added Medication Change: Yes (Detox changes daily) Medical Record Reviewed: Yes Mental Status Examination - Cognitive Function Orientation: Person, Place, Situation, Time Memory: Intact Attention: WNL Concentration: WNL Association: WNL Fund of Knowledge: WNL - Mood Mood: Anxious - Affect Affect: Constricted - Speech Speech: Appropriate - Formal Thought Process Formal Thought Process: No Impairment - Suicidal Ideation Suicidal Ideation: No - Homicidal Ideation Homicidal Ideation: No Goal/Treatment Plan - Goal/Treatment Plan Need for Continued Stay: Discharge may exacerbated symptoms, Severe functional impairment Progress Toward Problem(s) and Goals/Treatment Plan: Taper with subutex and librium Gabapentin for augmentation As needed medications All risks, benefits and alternatives of the meds discussed, and the pt agreed and understood. Attend groups and activities Supportive therapy and psychoeducation MT for abstinence CBT for relapse prevention Encourage MAT Refer to rehab or IOP, and self-help groups Smoking cessation with MT Nicotine patch Estimated Date of D/C: 07/27/17 - Smoking Cessation Smoking Cessation Initiated: Yes
[2017-07-25] MEDS: Buprenorphine Hydrochloride 2 mg SL SCH (09:19)
[2017-07-25] MEDS: Multiple Vitamins Tab PO SCH (09:19)
--- NOTE | 2017-07-25 10:33 | PCM.PYCHPN ---
Psychiatric Progress Note - Psychiatric Progress Note Patient seen today, length of contact: 16 min Patient Chief Complaint: "I have withdrawal symptoms" Problems Identified/Issues Discussed: The pt is seen, chart reviewed, case discussed with staff. Support given, CBT and HI used briefly No new symptoms reported, improving slowly and needs more time No SEs from medications, risks discussed. After care discussed Medication Change: Yes (Detox changes daily) Medical Record Reviewed: Yes Mental Status Examination - Cognitive Function Orientation: Person, Place, Situation, Time Memory: Intact Attention: WNL Concentration: WNL Association: WNL Fund of Knowledge: WN Decription of patient's judgement and insights: Fair/fair - Mood Mood: Anxious - Affect Affect: Constricted - Speech Speech: Appropriate - Formal Thought Process Formal Thought Process: No Impairment Psychotic Thoughts and Behaviors: denied - Suicidal Ideation Suicidal Ideation: No Plan: denied - Homicidal Ideation Homicidal Ideation: No Plan: denied Goal/Treatment Plan - Goal/Treatment Plan Need for Continued Stay: Discharge may exacerbated symptoms, Severe functional impairment Progress Toward Problem(s) and Goals/Treatment Plan: Continue current management and medications. Patient educated about risks, benefits, side effects & alternatives of meds. Pt verbalized understanding & agreed with the above. Therapy in milieu. Estimated Date of D/C: 07/27/17 - Smoking Cessation Smoking Cessation Initiated: Yes
[2017-07-26] MEDS: Buprenorphine Hydrochloride 2 mg SL SCH (09:48)
[2017-07-26] MEDS: Multiple Vitamins Tab PO SCH (09:52)
--- NOTE | 2017-07-26 10:27 | PCM.PYCHPN ---
Psychiatric Progress Note - Psychiatric Progress Note Patient seen today, length of contact: 16 min Patient Chief Complaint: "I have little anxiety" Problems Identified/Issues Discussed: The pt is seen, chart reviewed, case discussed with staff. He stated that he has little anxiety. Support given, CBT and UT used briefly No new symptoms reported, improving slowly and needs more time No SEs from medications, risks discussed. After care discussed DSM 5 Symptoms Update: Opioid use disorder, withdrawal symptoms, dependence Alcohol dependence, severe, withdrawal symptoms Medication Change: Yes (Detox changes daily) Medical Record Reviewed: Yes Mental Status Examination - Cognitive Function Orientation: Person, Place, Situation, Time Memory: Intact Attention: WNL Concentration: WNL Association: [facility] Fund of Knowledge: [facility] Decription of patient's judgement and insights: Fair/fair - Mood Mood: Anxious - Affect Affect: Constricted - Speech Speech: Appropriate - Formal Thought Process Formal Thought Process: No Impairment Psychotic Thoughts and Behaviors: denied - Suicidal Ideation Suicidal Ideation: No Plan: denied - Homicidal Ideation Homicidal Ideation: No Plan: denied Goal/Treatment Plan - Goal/Treatment Plan Need for Continued Stay: Discharge may exacerbated symptoms, Severe functional impairment Progress Toward Problem(s) and Goals/Treatment Plan: Continue current management and medications. Patient educated about risks, benefits, side effects & alternatives of meds. Pt verbalized understanding & agreed with the above. Therapy in milieu. Estimated Date of D/C: 07/27/17 - Smoking Cessation Smoking Cessation Initiated: Yes
[2017-07-27 08:24] VITALS: BP 115/80; PULSE 88; RESP 18; TEMP 97.4; O2SAT 99
--- NOTE | 2017-07-27 08:42 | PCM.PYCHDC ---
Mental Status Examination - Mental Status Examination Orientation: Person, Place, Situation, Time Memory: Intact Mood: Anxious Affect: Constricted Speech: Appropriate Attention: WNL Concentration: Poor Association: WNL Fund of Knowledge: WNL Formal Thought Process: No Impairment Suicidal Ideation: No Current Homicidal Ideation?: No Discharge Summary - Discharge Note Reason for Hospitalization: opioid detox Consultations:: List each consultation separately and include: 1. Reason for request. 2. Findings. 3. Follow-up Summary of Hospital Course include:: 1. Description of specific treatment plan utilized for patients during their course of treatmen. 2. Summarize the time- course for resolution of acute symptoms and/or regressed behaviors. 3. Describe issues identified and worked on during hospitalization. 4. Describe medication utilized. 5. Describe medical problems identified and treated. 6. Reassessment of suicide risk Summary of Hospital Course: Pt is seen, chart reviewed and case discussed. On admission: This patient is a 46 year old male who lives with his brother. 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 He is well-known from previous admissions to detox and dual-diagnosis psych. He reports: 20-25 bags of heroin daily, he drinks 20x 24 oz beers and 10 shots of vodka a day; marijuana use daily; and Xanax use, average 1 stick daily. He denies any cocaine use, LSD use, PCP use, or other drug use. He denies any previous seizures or delirium tremens. Patient denies any feelings of depression, AVH or paranoia. He denies any suicidal or homicidal ideations. [facility] after this detox. It's not clear how he couldn't go last time. He reports anxiety Past medical history: denies Past psychiatric history: numerous inpatient admissions for depressive symptoms intermixed with drug and alcohol use Family psychiatric history: denies Family substance use: family/friends Hospital course: The pt was admitted and started on treatment with psychotherapy, support, psychoeducation and medications. [place] and CBT used. The pt attended groups and activities, as well as milieu therapy. All the risks and benefits of medications are discussed and the patient understood and agreed. The pt improved with the treatments provided. After care discussed with the patient. He went to [facility] in [place]. - Final Diagnosis (DSM 5) Condition upon Discharge: STABLE DSM 5: Opioid withdrawal Opioid use d/o- severe Alcohol withdrawal Alcohol use d/o- severe Sedative, hypnotic use d/o - severe MICHELLE Depressive d/o - unspecified, in remission now Disposition: REHAB FACILITY/REHAB UNIT Follow-up Treatment Plan: Continue below medications after discharge. Follow after care plan as discussed. Use relapse prevention skills Return to ER or call 911 if suicidal, homicidal or symptoms relapse. Stay away from stress, alcohol and drugs. See primary doctor regularly and get labs. Prescriptions/Medication Reconciliation: Gabapentin [Neurontin] 300 mg PO TID #90 cap QUEtiapine [Seroquel] 100 mg PO HS #30 tab traZODone [Desyrel] 100 mg PO HS PRN #30 tab PRN Reason: insomnia - Smoking Cessation Smoking Cessation Medication prescribed: No - Antipsychotic Medications Pt discharged on 2 or more routine antipsychotic medications: No
[2017-07-27] MEDS ORDERED: Buprenorphine Hydrochloride 2 mg SL ONE (09:00)
[2017-07-27] MEDS: Multiple Vitamins Tab PO SCH (09:03)
== END 2017-07-27 09:50 | disposition home or self-care (01) | DRG 745 ==
LOC: C.ER 14:19 → C.9E 16:08 → C.7D 17:00
PROVIDERS: ADMIT Psychiatry & Neurology Psychiatry; ATTEND Psychiatry & Neurology Psychiatry
PROC: HZ2ZZZZ Detoxification Services for Substance Abuse Treatment (ICD-10-PCS; principal; 2017-07-22)
PROC: HZ52ZZZ Individual Psychotherapy for Substance Abuse Treatment, Cognitive-Behavioral (ICD-10-PCS; 2017-07-22)
PROC: HZ59ZZZ Individual Psychotherapy for Substance Abuse Treatment, Supportive (ICD-10-PCS; 2017-07-22)
PROC: HZ56ZZZ Individual Psychotherapy for Substance Abuse Treatment, Psychoeducation (ICD-10-PCS; 2017-07-22)
PROC: HZ42ZZZ Group Counseling for Substance Abuse Treatment, Cognitive-Behavioral (ICD-10-PCS; 2017-07-22)
PROC: HZ46ZZZ Group Counseling for Substance Abuse Treatment, Psychoeducation (ICD-10-PCS; 2017-07-22)
PROC: GZHZZZZ Group Psychotherapy (ICD-10-PCS; 2017-07-22)
PROC: GZ58ZZZ Individual Psychotherapy, Cognitive-Behavioral (ICD-10-PCS; 2017-07-22)
PROC: GZ56ZZZ Individual Psychotherapy, Supportive (ICD-10-PCS; 2017-07-22)
DX: F11.23 Opioid dependence with withdrawal (principal); F10.230 Alcohol dependence with withdrawal, uncomplicated; F13.20 Sedative, hypnotic or anxiolytic dependence, uncomplicated; Y90.5 Blood alcohol level of 100-119 mg/100 ml; F41.1 Generalized anxiety disorder

== ENCOUNTER 2018-05-28 22:45 | Inpatient (IN) | payer MEDICAID, OTHER ==
[2018-05-28 22:45] VITALS: BMI 30.8
--- NOTE | 2018-05-28 23:26 | C.PDOC ---
History Of Present Illness Patient presents to the ED for evaluation of depression. Patient reports having a similar episode last month when he wanted to jump into a river. Patient today states he felt like jumping in the highway. Patient denies HI, hallucinations, rash, weakness, numbness. Time Seen by Provider: 05/28/18 23:25 Chief Complaint (Nursing): Psychiatric Evaluation History Per: Patient History/Exam Limitations: no limitations Onset/Duration Of Symptoms: Hrs Current Symptoms Are (Timing): Still Present Suicide/Self Injury Attempted (Context): Other Modifying Factor(s): Alcohol Severity: None Associated Symptoms: Depression, Suicidal Thoughts Recent travel outside of the [place]: No Additional History Per: Patient Past Medical History Reviewed: Historical Data, Nursing Documentation, Vital Signs Vital Signs: Last Vital Signs Temp 98.1 F 05/28/18 23:10 Pulse 92 H 05/28/18 23:10 Resp 18 05/28/18 23:10 BP 121/76 05/28/18 23:10 Pulse Ox 96 05/28/18 23:10 - Medical History PMH: Anxiety, Bipolar Disorder, Depression, Schizophrenia Denies: Diabetes, Hepatitis, HIV, HTN, Chronic Kidney Disease, Seizures, Sexually Transmitted Disease Surgical History: No Surg Hx - [facility] Procedures ALCOHOL DETOXIFICATION (08/25/12) DETOXIFICATION SERVICES FOR SUBSTANCE ABUSE TREATMENT (07/22/17) GROUP AUDITOR APPRAISER FOR SUBSTANCE ABUSE TREATMENT, PSYCHOEDUCATION (07/22/17) GROUP AUDITOR APPRAISER FOR SUBSTANCE ABUSE, COGNITIVE BEHAVIORAL (07/22/17) GROUP PSYCHOTHERAPY (04/23/18) INDIV AUDITOR APPRAISER FOR SUBSTANCE ABUSE, COGNITIVE BEHAVIORAL (07/22/16) INDIV PSYCHOTHERAPY FOR SUBSTANCE ABUSE TREATMENT, SUPPORT (07/22/17) INDIV PSYCHOTHERAPY FOR SUBSTANCE ABUSE, COGNITIV BEHAVIORAL (07/22/17) INDIV PSYCHOTHERAPY FOR SUBSTANCE ABUSE, MOTIVATION ENHANCE (04/23/18) INDIV PSYCHOTHERAPY FOR SUBSTANCE ABUSE, PSYCHOEDUCATION (04/23/18) INDIVID PSYCHOTHERAP NEC (01/12/13) INDIVIDUAL PSYCHOTHERAPY, BEHAVIORAL (07/30/16) INDIVIDUAL PSYCHOTHERAPY, COGNITIVE-BEHAVIORAL (07/22/17) INDIVIDUAL PSYCHOTHERAPY, SUPPORTIVE (04/23/18) MEDICATION MANAGEMENT (08/15/16) MEDS MGMT FOR SUBSTANCE ABUSE TREATMENT, ANTABUSE (05/28/16) MEDS MGMT FOR SUBSTANCE ABUSE TREATMENT, METHADONE MAINT (05/28/16) OTHER GROUP THERAPY (01/12/13) Family History: States: Unknown Family Hx - Social History Hx Tobacco Use: Yes Hx Alcohol Use: Yes Hx Substance Use: Yes - Immunization History Hx Tetanus Toxoid Vaccination: Yes Hx Influenza Vaccination: No Hx Pneumococcal Vaccination: No Review Of Systems Constitutional: Negative for: Fever, Chills Cardiovascular: Negative for: Chest Pain Respiratory: Negative for: Shortness of Breath Gastrointestinal: Negative for: Nausea, Vomiting, Abdominal Pain Neurological: Negative for: Weakness, Numbness Psych: Positive for: Depression, Suicidal ideation Physical Exam - Physical Exam Appears: Non-toxic, No Acute Distress Skin: Warm, Dry Head: Normacephalic Eye(s): bilateral: Normal Inspection Neck: Supple Chest: Symmetrical Cardiovascular: Rhythm Regular Respiratory: No Rales, No Rhonchi, No Wheezing Gastrointestinal/Abdominal: Soft, No Tenderness, No Guarding, No Rebound Extremity: Bilateral: Atraumatic, Normal Color And Temperature, Normal ROM Neurological/Psych: Oriented x3, Normal Speech, Normal Cognition Gait: Steady ED Course And Treatment - Laboratory Results Result Diagrams: 05/29/18 00:17 O2 Sat by Pulse Oximetry: 96 (On RA) Pulse Ox Interpretation: Normal Progress Note: Plan: - Labs. - Ua. - Crisis. - 1:1 obs Disposition Discuss[address] With Dr.: Vicente Aguillon Comment: accepted the pt on hgis service and took over the care at 12:43 AM Doctor Will See Patient In The: Hospital Counseled Patient/Family Regarding: Studies Performed, Diagnosis - Disposition Disposition: HOSPITALIZED Disposition Time: 23:25 Condition: FAIR Forms: [facility] (Czech) - POA Present On Arrival: None - Clinical Impression Clinical Impression: Major depression - Scribe Statement The provider has reviewed the documentation as recorded by the Scribe Ben Lincoln All medical record entries made by the Scribe were at my direction and personally dictated by me. I have reviewed the chart and agree that the record accurately reflects my personal performance of the history, physical exam, medical decision making, and the department course for this patient. I have also personally directed, reviewed, and agree with the discharge instructions and disposition. Decision To Admit - Pt Status Changed To: Hospital Disposition Of: Inpatient - Admit Certification Admit to Inpatient:: After my assessment, the patient will require hospitalization for at least two midnights. This is because of the severity of symptoms shown, intensity of services needed, and/or the medical risk in this patient being treated as an outpatient. - InPatient: Physician Admission Certification: I certify that this patient requires 2 or more midnights of care for the following reason:: After my assessment, the patient will require hospitalization for at least two midnights. This is becaus e of the severity of symptoms shown, intensity of services needed, and/or the medical risk in this patient being treated as an outpatient. - . Bed Request Type: Psychiatry Admitting Physician: Vicente Aguillon Patient Diagnosis: Major depression
[2018-05-29 00:26] LABS: BASO % 0.6 % (0.0-2.0); EOS # 0.2 K/uL (0.0-0.7); EOS % 3.7 % (0.0-4.0); HEMOGLOBIN 13.2 g/dL (12.0-18.0); LYMPH # 1.5 K/uL (1.0-4.3); LYMPH % 27.5 % (20.0-40.0); MEAN CELL VOLUME 96.2 fL (80.0-94.0); MEAN CORPUSCULAR HEMOGLOBIN 32.1 pg (27.0-31.0); MEAN CORPUSCULAR HGB CONC 33.3 g/dL (33.0-37.0); MEAN PLATELET VOLUME 7.4 fL (7.2-11.7); MONO # 0.3 K/uL (0.0-0.8); MONO % 5.5 % (0.0-10.0); NEUT # 3.3 K/uL (1.8-7.0); NEUT % 62.7 % (50.0-75.0); NRBC % 0.1 % (0.0-2.0); RBC 4.11 Mil/uL (4.40-5.90); RED CELL DISTRIBUTION WIDTH 13.9 % (11.5-14.5); WHITE BLOOD COUNT 5.3 K/uL (4.8-10.8)
[2018-05-29 00:34] LABS: SQUAMOUS EPITHIAL 2 /hpf (0-5); URINE BILIRUBIN NEGATIVE (NEGATIVE); URINE BLOOD NEGATIVE (NEGATIVE); URINE CLARITY Clear (Clear); URINE COLOR Straw (YELLOW); URINE GLUCOSE (UA) NORMAL (Normal); URINE LEUKOCYTE ESTERASE NEG Leu/uL (Negative); URINE PROTEIN NEGATIVE (NEGATIVE); URINE UROBILINOGEN NORMAL mg/dL (0.2-1.0)
[2018-05-29 00:43] LABS: BARBITURATES, UR NEGATIVE (NEGATIVE); BENZODIAZEPINES, UR NEGATIVE (NEGATIVE); PHENCYCLIDINE, UR NEGATIVE (NEGATIVE)
[2018-05-29 00:55] LABS: ALBUMIN 4.1 g/dL (3.5-5.0); ALT/SGPT 61 U/L (21-72); AST/SGOT 73 U/L (17-59); BLOOD UREA NITROGEN 8 mg/dL (9-20); GFR NON-AFRICAN AMERICAN > 60
[2018-05-29 01:40] LABS: OPIATES, UR POSITIVE (NEGATIVE)
--- NOTE | 2018-05-29 02:32 | PCM.BM ---
Treatment Plan Problems - Problems identified on initial assessmt Suicidal Ideation Date Initiated: 05/29/18 Time Initiated: :45 Assessment reference: NA Status: Monitor Comment: Plan to overdose or jump off a bridge Agitated/Aggressive Behavior Date Initiated: 05/29/18 Time Initiated: :45 Assessment reference: NA Status: Active Comment: Homicidal Ideation towards brother Ineffective Coping Date Initiated: 05/29/18 Time Initiated: :45 Assessment reference: NA Status: Active Comment: Alcohol and Heroin use as a coping mechanism Treatment assets and liabiliti Patient Assests: ADL independent, negotiates basic needs, cognitively intact Patient Liabilities: live alone (Homeless), financial problems, poor support system, relationship conflicts (Homicidal Ideation towards brother), substance abuse (Alcohol and Heroin abuse) - Milieu Protocol Maintain good personal hygiene: daily Encourage regular showers, daily Remind patient to perform daily oral care, every shift Assist patient to perform ADL's Conduct patient checks and document Observation sheet: Q15 minutes Maintain personal safety: every shift Educate patient to report safety concerns to staff, every shift Monitor environment for contraband/sharps Medication safety: Monitor for expected outcome, potential side effects: every shift, Assess barriers to learning: every shift, Assess readiness for medication education: every shift
[2018-05-29] MEDS ORDERED: Aluminum Hydroxide/Magnesium Hydroxide Susp (30 mL) PO PRN (11:45)
[2018-05-29] MEDS: Multiple Vitamins Tab PO SCH (13:04)
--- NOTE | 2018-05-29 23:03 | PCM.PSYCH ---
Initial Psychiatric Evaluation - Initial Psychiatric Evaluation Type of Admission: Voluntary Legal Status: Capacity Chief Complaint (in patient's own words): I am depressed and relapsed on drugs. History of Present Illness and Precipitating Events: Patient is a 47 years old, single, unemployed, homeless, male with history of depression, opioid, alcohol, cannabis and Xanax use was admitted due to withdrawing from opioid and alcohol and also worsening of depression with suicidal ideations. Patient reported history of depression for long, increased in intensity for last 2 months after he released from the long-term and found that he has no place to live. Before he was living with his brother and his family home. Patient reported he is noncompliant with treatment, has decreased sleep and appetite and lost about 30 pounds in 2 months. Also started having suicidal ideations with plan to jump from a bridge. No history of suicidal attempts. Also reported having homicidal ideations at times towards his brother. Lasted had 1 week ago. Also reported crying, hopelessness and helplessness and feeling guilt. Denied any psychotic, manic or anxiety symptoms. Patient has no history of seeing a psychiatrist. History of more than 10 inpatient psychiatric admissions. Patient was in long-term multiple times. He was released from the long-term recently about 2 months ago. He was in long-term due to violation of probation. Opioid: He started using heroin at 21 years of age, was using 15 bags of heroine daily, sniffing. Last used yesterday. His longest period of abstinence was 8 years from 2751-1505. He has history of for about 20 detox and 1 rehab. He was also in methadone maintenance program in the past. Alcohol: Started drinking alcohol 30 years ago. Currently he was drinking 20 cans of beer each of 24 ounces and 10-20 shots daily. Last drink yesterday. Also using cannabis and Xanax on an average once take of Xanax daily. Also he smokes cigarettes sometimes. Patient was born in [place] and has high school graduation. 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 He is homeless for last 2 months after he was released from long-term. Never and has no children. His height is 6 feet 2 inches and weight is 220 pounds. Current Medications: Active Medications Generic Name Dose Route Start Last Admin Trade Name Freq PRN Reason Stop Dose Admin Al Hydrox/Mg Hydrox/Simethicone 30 ml 05/29/18 11:45 Maalox 30 Ml PO TID PRN Indigestion / Heartburn Chlordiazepoxide 25 mg 05/29/18 18:00 05/29/18 17:20 Librium PO 06/02/18 17:59 25 mg Q6 BURTON Administration Taper Chlordiazepoxide 25 mg 05/29/18 13:00 05/29/18 21:28 Librium PO 25 mg Q4H PRN Administration Alcohol Withdrawal Clonidine HCl 0.1 mg 05/29/18 10:16 05/29/18 19:47 Catapres PO 0.1 mg Q4 PRN Administration COWS Score More or Equal to 5 Dicyclomine HCl 10 mg 05/29/18 12:00 Bentyl PO Q6 PRN Muscle spasm Folic Acid 1 mg 05/29/18 13:00 05/29/18 13:04 Folic Acid PO 1 mg DAILY BURTON Administration Ibuprofen 600 mg 05/29/18 12:00 Motrin Tab PO Q6 PRN Pain, moderate (4-7) Loperamide HCl 2 mg 05/29/18 14:00 Imodium PO Q8 PRN Diarrhea Methadone HCl 20 mg 05/29/18 10:20 05/29/18 10:49 Methadone PO 06/02/18 10:19 20 mg Q24H BURTON Administration Taper Methadone HCl 15 mg 05/30/18 10:00 Methadone PO 06/02/18 09:59 Q24H BURTON Taper Multivitamins 1 tab 05/29/18 13:00 05/29/18 13:04 Hexavitamin PO 1 tab DAILY BURTON Administration Ondansetron HCl 4 mg 05/29/18 14:00 Zofran Tab PO Q8 PRN Nausea/Vomiting Pneumococcal Polyvalent Vaccine 0.5 ml 06/01/18 10:00 Pneumovax 23 Vaccine IM 06/01/18 10:01 .ONCE ONE Thiamine HCl 100 mg 05/29/18 13:00 05/29/18 13:05 Vitamin B1 Tab PO 100 mg DAILY BURTON Administration Trazodone HCl 50 mg 05/29/18 22:00 Desyrel PO HS PRN Insomnia Past Psychiatric History - Past Psychiatric History Previous Treatment History: Inpatient At [facility]: [facility]ly at [facility] History of Abuse: None reported History of ETOH/Drug Use: See HPI History of Family Illness: Reported his maternal grandfather was alcoholic. Also his maternal uncle and one paternal uncle due to heroin overdose. Pertinent Medical Hx (Current Medical&Sleep Prob, Allergies): Allergies Allergy/AdvReac Type Severity Reaction Status Date / Time FISH Allergy Severe RASH Verified 05/28/18 23:19 EGG Allergy RASH Verified 05/28/18 23:19 haloperidol [From Haldol] Allergy SHORTNESS Verified 05/28/18 23:19 OF BREATH Penicillins Allergy RASH Verified 05/28/18 23:19 No Known Home Med 05/28/18 Review of Systems - Psychiatric Psychiatric: As Per HPI, Behavioral Changes, Change in Appetite, Depression, Suicidal Ideation Mental Status Examination - Personal Presentation Personal Presentation: Looks stated age - Affect Affect: Depressed - Motor Activity Motor Activity: Calm - Reliability in Providing Information Reliability in Providing Information: Fair - Speech Speech: Organized - Mood Mood: Depressed - Formal Thought Process Formal Thought Process: No Impairment - Hallucinations/Delusions Hallucinations: Other (None reported) Delusions: Other - Obsessions/Compulsions Obsessions: None Compulsions: None - Cognitive Functions Orientation: Person, Place, Situation, Time Sensorium: Alert Attention/Concentration: Attentive Abstract Thinking: [place] Estimate of Intelligence: Average Judgement: Intact, as evidence by: Insight regarding need for hospitalization Memory: Recent intact, as evidence by: Ability to recall events of the day, Remote intact, as evidenced by: Ability to recall historical events - Risk Risk: Withdrawal, Diminished functioning - Strength & Assets Inventory Strength & Assets Inventory: Cooperative - Limitations Limitations: Other (Homeless) DSM 5 DX - DSM 5 DSM 5 Diagnosis: Major depressive disorder recurrent severe without psychotic features. Opioid withdrawal. Opioid use disorder severe. Alcohol withdrawal. Alcohol use disorder severe. Anxiolytic use disorder severe - Recommended/Plan of Treatment Treatment Recommendations and Plan of Treatment: Patient education. Supportive therapy. CBT for relapse prevention. [place] for abstinence. We will start methadone taper for opiate withdrawal symptoms. Librium taper for alcohol withdrawal symptoms and anxiolytic withdrawal symptoms. Other PRN medications. Also medications for his mood. Projected ELOS: 8-10 days Discharge Plan and Discharge Criteria: No withdrawal No suicidal and homicidal ideations Medication adjustment. - Smoking Cessation Smoking Cessation Initiated: No
[2018-05-30] MEDS: Multiple Vitamins Tab PO SCH (09:15)
[2018-05-30 13:42] VITALS: O2SAT 98
[2018-05-31] MEDS: Multiple Vitamins Tab PO SCH (09:15)
--- NOTE | 2018-05-31 21:05 | PCM.PYCHPN ---
Psychiatric Progress Note - Psychiatric Progress Note Patient seen today, length of contact: 15 minutes Patient Chief Complaint: I am feeling little better. Problems Identified/Issues Discussed: Patient seen, chart reviewed, case discussed with the staff. Patient was seen in the team. Issues related to illness and treatment were discussed with the patient and staff. Reported compliant with treatment with no adverse effects. Tolerating treatment very well. Patient reported feeling little better as he slept after the addition of Seroquel but still has some withdrawal symptoms. Staff reported no behavioral disturbance. Mood reported as okay. Affect appropriate. Aftercare discussed with the patient. Denied any delusions, auditory or visual hallucinations, no suicidal ideations or homicidal ideations at the time of evaluation. Medical Problems: None reported Diagnostic Results: Reviewed DSM 5 Symptoms Update: Some improvement with treatment. Medication Change: No Medical Record Reviewed: Yes Mental Status Examination - Cognitive Function Orientation: Person, Place, Situation, Time Memory: Intact Attention: WNL Concentration: WNL Association: WNL Fund of Knowledge: WN Decription of patient's judgement and insights: Fair - Mood Mood: Depressed - Affect Affect: Depressed - Speech Speech: Appropriate - Formal Thought Process Formal Thought Process: No Impairment Psychotic Thoughts and Behaviors: None - Suicidal Ideation Suicidal Ideation: No - Homicidal Ideation Homicidal Ideation: No Goal/Treatment Plan - Goal/Treatment Plan Need for Continued Stay: Remain at risks for inpatient hospitalization, Discharge may exacerbated symptoms, Severe functional impairment Progress Toward Problem(s) and Goals/Treatment Plan: Patient education. Supportive therapy. CBT for relapse prevention. [place] for abstinence. Continue treatment as before. Aftercare discussed with the patient. Estimated Date of D/C: 06/04/18 - Smoking Cessation Smoking Cessation Initiated: No
[2018-06-01] MEDS: Multiple Vitamins Tab PO SCH (09:05)
[2018-06-01] MEDS ORDERED: Pneumococcal 23-Valent Vaccine IM ONE (10:00)
--- NOTE | 2018-06-01 19:32 | PCM.PYCHPN ---
Psychiatric Progress Note - Psychiatric Progress Note Patient seen today, length of contact: 15 minutes Patient Chief Complaint: I am feeling little better. I am anxious about my follow-up care. Problems Identified/Issues Discussed: Patient seen, chart reviewed, case discussed with the staff. Patient was seen in the team. Issues related to illness and treatment were discussed with the patient and staff. Reported compliant with treatment with no adverse effects. Tolerating treatment very well. Patient reported feeling little better. Still feeling anxious about his follow- up care. Due to this his sleep is again to stop. Also that he has some withdrawal symptoms including chills, nervousness, abdominal cramps, nausea and body aches. Education provided to the patient about medications and detox. Staff reported no behavioral disturbance. Mood reported as Anxious. Affect appropriate. Aftercare discussed with the patient. Denied any delusions, auditory or visual hallucinations, no suicidal ideations or homicidal ideations at the time of evaluation. Medical Problems: None reported Diagnostic Results: Reviewed DSM 5 Symptoms Update: Some improvement with treatment. Medication Change: Yes (Will increase the dose of Seroquel to 100 mg.) Medical Record Reviewed: Yes Mental Status Examination - Cognitive Function Orientation: Person, Place, Situation, Time Memory: Intact Attention: WNL Concentration: WNL Association: [facility] Fund of Knowledge: [facility] Decription of patient's judgement and insights: Fair - Mood Mood: Anxious - Affect Affect: Other (Appropriate) - Speech Speech: Appropriate - Formal Thought Process Formal Thought Process: No Impairment Psychotic Thoughts and Behaviors: None - Suicidal Ideation Suicidal Ideation: No - Homicidal Ideation Homicidal Ideation: No Goal/Treatment Plan - Goal/Treatment Plan Need for Continued Stay: Remain at risks for inpatient hospitalization, Discharge may exacerbated symptoms, Severe functional impairment Progress Toward Problem(s) and Goals/Treatment Plan: Patient education. Supportive therapy. CBT for relapse prevention. [place] for abstinence. Will increase the dose of Seroquel to 100 mg at bedtime. Continue rest of the treatment as before. Aftercare discussed with the patient. Estimated Date of D/C: 06/04/18 - Smoking Cessation Smoking Cessation Initiated: No
[2018-06-02] MEDS: Multiple Vitamins Tab PO SCH (09:55)
--- NOTE | 2018-06-02 23:29 | PCM.PYCHPN ---
Psychiatric Progress Note - Psychiatric Progress Note Patient seen today, length of contact: 15 minutes Patient Chief Complaint: I am feeling little better. I still have withdrawal symptoms. Can I get 1 dose of methadone 5 mg. Problems Identified/Issues Discussed: Patient seen, chart reviewed, case discussed with the staff. Patient was seen in the team. Issues related to illness and treatment were discussed with the patient and staff. Reported compliant with treatment with no adverse effects. Tolerating treatment very well. Patient reported feeling little better. Still feeling anxious about his follow- up care. Due to this his sleep is again to stop. Also that he has some withdrawal symptoms including chills, nervousness, abdominal cramps, nausea and body aches. Education provided to the patient about medications and detox.Patient was adamant to get 1 extra dose of methadone 5 mg. As patient still had some withdrawal symptoms, will provide 1 dose of 5 mg of methadone later. Staff reported no behavioral disturbance. Mood reported as Anxious. Affect appropriate. Aftercare discussed with the patient. Denied any delusions, auditory or visual hallucinations, no suicidal ideations or homicidal ideations at the time of evaluation. Medical Problems: None reported Diagnostic Results: Reviewed DSM 5 Symptoms Update: Some improvement with treatment. Medication Change: Yes Medical Record Reviewed: Yes Mental Status Examination - Cognitive Function Orientation: Person, Place, Situation, Time Memory: Intact Attention: WNL Concentration: WNL Association: WN Fund of Knowledge: [facility] Decription of patient's judgement and insights: Fair - Mood Mood: Anxious - Affect Affect: Other (Appropriate) - Speech Speech: Appropriate - Formal Thought Process Formal Thought Process: No Impairment Psychotic Thoughts and Behaviors: None - Suicidal Ideation Suicidal Ideation: No - Homicidal Ideation Homicidal Ideation: No Goal/Treatment Plan - Goal/Treatment Plan Need for Continued Stay: Remain at risks for inpatient hospitalization, Discharge may exacerbated symptoms, Severe functional impairment Progress Toward Problem(s) and Goals/Treatment Plan: Patient education. Supportive therapy. CBT for relapse prevention. [place] for abstinence. Continue treatment as before. Aftercare discussed with the patient. [facility] go to [facility] for follow-up care after discharge from the hospital. Estimated Date of D/C: 06/04/18 - Smoking Cessation Smoking Cessation Initiated: No
[2018-06-03] MEDS: Multiple Vitamins Tab PO SCH (09:01)
--- NOTE | 2018-06-03 17:08 | PCM.PYCHPN ---
Psychiatric Progress Note - Psychiatric Progress Note Patient seen today, length of contact: 15 minutes Patient Chief Complaint: I am feeling better. Problems Identified/Issues Discussed: Patient seen, chart reviewed, case discussed with the staff. Patient was seen in the team. Issues related to illness and treatment were discussed with the patient and staff. Reported compliant with treatment with no adverse effects. Tolerating treatment very well. Patient reported feeling better. Still feeling anxious about his follow-up care. Staff reported no behavioral disturbance. Mood reported as Anxious. Affect appropriate. Aftercare discussed with the patient. Denied any delusions, auditory or visual hallucinations, no suicidal ideations or homicidal ideations at the time of evaluation. Medical Problems: None reported Diagnostic Results: Reviewed DSM 5 Symptoms Update: Improving with treatment. Medication Change: No Medical Record Reviewed: Yes Mental Status Examination - Cognitive Function Orientation: Person, Place, Situation, Time Memory: Intact Attention: WNL Concentration: WNL Association: [facility] Fund of Knowledge: [facility] Decription of patient's judgement and insights: Fair - Mood Mood: Anxious (Less than before) - Affect Affect: Other (Appropriate) - Speech Speech: Appropriate - Formal Thought Process Formal Thought Process: No Impairment Psychotic Thoughts and Behaviors: None - Suicidal Ideation Suicidal Ideation: No - Homicidal Ideation Homicidal Ideation: No Goal/Treatment Plan - Goal/Treatment Plan Need for Continued Stay: Remain at risks for inpatient hospitalization, Discharge may exacerbated symptoms, Severe functional impairment Progress Toward Problem(s) and Goals/Treatment Plan: Patient education. Supportive therapy. CBT for relapse prevention. [place] for abstinence. Continue treatment as before. Aftercare discussed with the patient. Patient wants to go to either or [facility] for follow-up care after discharge from the hospital. Estimated Date of D/C: 06/04/18 - Smoking Cessation Smoking Cessation Initiated: No
[2018-06-04 07:02] VITALS: BP 117/78; PULSE 61; RESP 18; TEMP 97.5
[2018-06-04] MEDS: Multiple Vitamins Tab PO SCH (09:12)
--- NOTE | 2018-06-04 12:12 | PCM.PYCHDC ---
Mental Status Examination - Mental Status Examination Orientation: Person, Place, Situation, Time Memory: Intact Mood: Neutral Affect: Other (Appropriate) Speech: Appropriate Attention: WNL Concentration: WNL Association: WNL Fund of Knowledge: WNL Formal Thought Process: No Impairment Description of patient's judgement and insight: Fair Psychotic Thoughts and Behaviors: None Suicidal Ideation: No Current Homicidal Ideation?: No Discharge Summary - Discharge Note Reason for Hospitalization: Major depressive disorder recurrent severe without psychotic features. Opioid withdrawal. Opioid use disorder severe. Alcohol withdrawal. Alcohol use disorder severe. Anxiolytic use disorder severe Laboratory Data: Reviewed Consultations:: List each consultation separately and include: 1. Reason for request. 2. Findings. 3. Follow-up Summary of Hospital Course include:: 1. Description of specific treatment plan utilized for patients during their course of treatmen. 2. Summarize the time- course for resolution of acute symptoms and/or regressed behaviors. 3. Describe issues identified and worked on during hospitalization. 4. Describe medication utilized. 5. Describe medical problems identified and treated. 6. Reassessment of suicide risk Summary of Hospital Course: Patient is a 47 years old, single, unemployed, homeless, male with history of depression, opioid, alcohol, cannabis and Xanax use was admitted due to withdrawing from opioid and alcohol and also worsening of depression with suicidal ideations. Patient reported history of depression for long, increased in intensity for last 2 months after he released from the [facility] and found that he has no place to live. Before he was living with his brother and his family home. Patient reported he is noncompliant with treatment, has decreased sleep and appetite and lost about 30 pounds in 2 months. Also started having suicidal ideations with plan to jump from a bridge. No history of suicidal attempts. Also reported having homicidal ideations at times towards his brother. Lasted had 1 week ago. Also reported crying, hopelessness and helplessness and feeling guilt. Denied any psychotic, manic or anxiety symptoms. Patient has no history of seeing a psychiatrist. History of more than 10 inpatient psychiatric admissions. Patient was in [facility] multiple times. He was released from the [facility] recently about 2 months ago. He was in [facility] due to violation of probation. Opioid: He started using heroin at 21 years of age, was using 15 bags of heroine daily, sniffing. Last used yesterday. His longest period of abstinence was 8 years from [id number]. He has history of for about 20 detox and 1 rehab. He was also in methadone maintenance program in the past. Alcohol: Started drinking alcohol 30 years ago. Currently he was drinking 20 cans of beer each of 24 ounces and 10-20 shots daily. Last drink yesterday. Also using cannabis and Xanax on an average once take of Xanax daily. Also he smokes cigarettes sometimes. Patient was born in [place] and has high school graduation. 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 He is homeless for last 2 months after he was released from [facility]. Never and has no children. His height is 6 feet 2 inches and weight is 220 pounds. During his stay in the hospital patient was treated with methadone taper for opioid withdrawal symptoms. He was also started on other medication for his depression and as needed medications. Patient was attending groups and other activities on the unit. With above treatment patient started feeling better, had no withdrawal symptoms. Today patient was ready for discharge from the hospital. At the time of evaluation and discharge, patient was awake, alert and oriented x3, had no delusions, no auditory or visual hallucinations, no suicidal ideation or homicidal ideations. Patient was discharged in stable condition. - Final Diagnosis (DSM 5) Condition upon Discharge: FAIR Disposition: HOME/ ROUTINE Follow-up Treatment Plan: Patient will go to [facility] for follow-up care after discharge from the hospital. Prescriptions/Medication Reconciliation: QUEtiapine [Seroquel] 100 mg PO HS #30 tab - Smoking Cessation Smoking Cessation Medication prescribed: No - Antipsychotic Medications Pt discharged on 2 or more routine antipsychotic medications: No
== END 2018-06-04 14:14 | disposition home or self-care (01) | DRG 885 ==
LOC: C.ER 22:45 → C.5E 05-29 00:42
PROC: GZ56ZZZ Individual Psychotherapy, Supportive (ICD-10-PCS; principal; 2018-05-29)
DX: F33.2 Major depressive disorder, recurrent severe without psychotic features (principal); F11.23 Opioid dependence with withdrawal; R45.851 Suicidal ideations; F10.230 Alcohol dependence with withdrawal, uncomplicated; F12.90 Cannabis use, unspecified, uncomplicated; F17.210 Nicotine dependence, cigarettes, uncomplicated; R45.850 Homicidal ideations; Z59.0 Homelessness; Z91.19 Patient's noncompliance with other medical treatment and regimen; Y90.8 Blood alcohol level of 240 mg/100 ml or more